=== PATIENT | male | born 1975 | race Caucasian/White ===

== ENCOUNTER 2018-01-22 12:38 | Observation (INO) ==
[2018-01-22] MEDS ORDERED: Aspirin 81 MG TAB.CHEW PO STA (13:42)
[2018-01-22 13:51] LABS: Basophils % 0.3 %; Eosinophils # 0.1 K/mcL (0.0-0.6); Eosinophils % 1.1 %; Hematocrit 35.7 % (37.5-50.1); Immature Granulocytes % 0.2 % (0-4); Lymphocytes # 2.5 K/mcL (0.6-4.6); Lymphocytes % 37.8 %; Mean Corpuscular HGB Conc 33.6 g/dL (31.6-35.5); Mean Corpuscular Hemoglobin 29.2 pg (28.0-33.3); Mean Corpuscular Volume 86.9 fL (83.0-100.0); Mean Platelet Volume 11.6 fL (9.4-12.4); Monocytes # 0.4 K/mcL (0.0-1.3); Monocytes % 6.7 %; Neutrophils # 3.6 K/mcL (1.6-8.9); Platelet Count 119 K/mcL (140-400); Red Blood Count 4.11 M/mcL (4.19-5.50); Red Cell Distribution Width 12.7 % (11.5-14.5); Segmented Neutrophils % 53.9 %
[2018-01-22 14:05] LABS: Troponin I < 0.03 ng/mL (< 0.04)
[2018-01-22 14:06] LABS: BUN/Creatinine Ratio 17 (6-26); Blood Urea Nitrogen 17 mg/dL (6-20); Calcium 9.8 mg/dL (8.6-10.3); Carbon Dioxide 33 mEq/L (23-29); Chloride 101 mEq/L (98-107); Glucose 91 mg/dL (70-105); Magnesium 1.9 mg/dL (1.6-2.6); Osmolality,Calculated 293 (280-300); Potassium 3.4 mEq/L (3.5-5.1); Sodium 141 mEq/L (136-145); eGFR For Non-African Americans > 60 (> 60)
[2018-01-22 15:14] LABS: Acetaminophen < 10 mcg/mL (10-20); Ethanol < 10 mg/dL (Less than 10); Salicylate < 2.5 mg/dL (15.0-30.0)
[2018-01-22 15:49] LABS: Thyroid Stimulating Hormone 2.127 mcIU/mL (0.340-5.600); Triiodothyronine (T3) Free 2.77 pg/mL (2.50-3.90)
[2018-01-22] MEDS ORDERED: Naloxone 0.4 MG/ML INJ IVP PRN (16:09)
[2018-01-22] MEDS ORDERED: *HR* HYDROcodone/Acet 5/325 mg TABLET PO PRN (16:09)
[2018-01-22] MEDS ORDERED: *HR* OxyCODONE Immed Rel 5 MG TABLET PO PRN (16:09)
[2018-01-22] MEDS ORDERED: Nitroglycerin 0.4 MG TAB.SUBL SL PRN (16:13)
--- NOTE | 2018-01-22 16:17 | Electrocardiograph Report ---
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
[2018-01-22] MEDS: *HR* Heparin 5,000 UNIT/ML VIAL SQ SCH (17:42)
[2018-01-22] MEDS: Nicotine 21 MG PATCH.TD24 TD SCH (17:42)
--- NOTE | 2018-01-22 19:20 | Emergency Department Note ---
Disposition Clinical Impression: Bradycardia, Medication reaction, Prolonged QT interval Chest pain Qualifiers: Chest pain type: unspecified Qualified Code(s): R07.9 - Chest pain, unspecified Disposition: Admitted As Inpatient Condition: Fair Time of Disposition: 21:50 Chest Pain HPI - General Chief Complaint: ED Chest Pain Stated Complaint: CP Time Seen by Provider: 01/22/18 12:55 Source: patient, family Limitations: no limitations Vital Signs Reviewed: Yes Nursing Notes Reviewed: Yes - History of Present Illness HPI Narrative: Patient is a 42-year-old male complaining of a one-week history of intermittent chest pain associated with diaphoresis and numbness and tingling into bilateral upper extremities and neck. Patient describes his chest discomfort as "tightness" in nature 10 out of 10 on the pain scale and no nradiating. Patient said states that both episodes of chest pain have occurred at rest and that he has no known medical history of heart condition other than hypertension which is treated with lisinopril and hydrochlorothiazide. The patient admits to a positive family history of heart disease and mother and states that he has been ordered to see a parking lot signaler by his primary care physician who noted abnormalities within his EKG. Patient is currently asymptomatic but states that he is very anxious over what may be causing his symptoms. Patient admits to daily marijuana use as well as methadone therapy. Onset (ago): week(s) Duration: intermittent, now resolved Onset: during rest Pain Location: substernal, left chest Severity: severe Severity scale (1-10): 10 Quality: tightness Pain Radiation: none Improves with: nothing Worsens with: nothing Context: other Associated symptoms: Reports: diaphoresis, other (Patient admits to numbness and tingling bilateral upper extremities and neck area.) - Related Data Home Medications Medication Instructions Recorded Confirmed Albuterol Sulfate [Ventolin Hfa] 2 puff IH Q4H PRN 01/22/18 01/22/18 Atorvastatin Calcium [Lipitor] 20 mg PO QPM 01/22/18 01/22/18 Fenofibrate Nanocrystallized 160 mg PO DAILY 01/22/18 01/22/18 [Triglide] Fluticasone Propionate [Allergy 1 spr NS DAILY 01/22/18 01/22/18 Relief] Gabapentin [Neurontin] 800 mg PO BID 01/22/18 01/22/18 Lidocaine 1 patch TP DAILY 01/22/18 01/22/18 Lisinopril [Zestril] 40 mg PO DAILY 01/22/18 01/22/18 RX: Loratadine [Claritin] 10 mg PO DAILY 01/22/18 01/22/18 hydroCHLOROthiazide 25 mg PO DAILY 01/22/18 01/22/18 [Hydrochlorothiazide] Allergies Allergy/AdvReac Type Severity Reaction Status Date / Time No Known Allergies Allergy Verified 01/22/18 12:50 All systems ED: reviewed and negative except as stated. Eyes: Denies: vision change Cardiovascular: Reports: chest pain Respiratory: Reports: dyspnea Gastrointestinal: Reports: constipation. Denies: abdominal pain, nausea, vomiting, hematochezia Genitourinary: Denies: hematuria Neurological: Reports: numbness, paresthesias. Denies: headache Psychiatric: Reports: anxiety Chest Pain PMH - Past Medical History Medical history: Reports: hypertension Psychiatric history: Reports: anxiety, bipolar - Social History Smoking Status: Current every day smoker Alcohol use: Reports: none Drug use: Reports: marijuana. Denies: methamphetamine Physical Exam - General Limitations: no limitations General appearance: alert, in no apparent distress, anxious - Head Head exam: atraumatic, normocephalic - Eye Eye exam: Present: normal appearance, PERRL, EOMI. Absent: scleral icterus, conjunctival injection - Neck Neck exam: Present: trachea midline - Chest Chest inspection: Present: normal inspection, symmetric chest wall rise. Absent: tenderness, rash, abscess - Respiratory Respiratory exam: Present: normal lung sounds bilaterally. Absent: respiratory distress, wheezes, stridor, accessory muscle use, prolonged expiratory phase - Cardiovascular Cardiovascular exam: Present: regular rate, normal rhythm, normal heart sounds, +S1, +S2. Absent: rubs, gallop, clicks, JVD, +S3, +S4 - Abdominal Exam Abdominal exam: Present: soft, tenderness, normal bowel sounds. Absent: distention, guarding, rebound, rigidity Abdominal tenderness: Present: LLQ - Neurological Exam Neurological exam: Present: alert, oriented X3 - Psychiatric Psychiatric exam: Present: normal affect, normal mood, anxious - Skin Skin exam: Present: warm, dry, intact, normal color. Absent: cyanosis, diaphoresis Course Course Narrative: Patient history, review systems, physical exam, and EKG are concerning for cardiopulmonary etiology. CBC, BMP, magnesium, troponin, EKG, chest x-ray to assess for cardiac etiology versus electrolyte derangement. 81 mg aspirin administered. Vital Signs Temperature 98.1 F 01/22/18 12:50 Pulse Rate 59 01/22/18 12:50 Respiratory Rate 20 01/22/18 12:50 Blood Pressure 120/80 01/22/18 12:50 O2 Sat by Pulse Oximetry 100 01/22/18 12:50 Temperature 98.5 F 01/22/18 17:31 Pulse Rate 49 01/22/18 17:31 Respiratory Rate 18 01/22/18 17:31 Blood Pressure 133/84 01/22/18 17:31 O2 Sat by Pulse Oximetry 97 01/22/18 18:15 Oxygen Delivery Oxygen Delivery Room Air Chest Pain - MDM Narrative Medical decision making narrative: Patient EKG changes in light of daily methadone use warrants admission for telemetry and observation. Dr. Martin from cardiology consulted and ordered potassium and magnesium. 40 mg by mouth potassium with a 20 mg rider given the patient along with 2 g of magnesium. Hospitalist consulted and accepted admission. - Lab Data Result diagrams: 01/22/18 13:28 01/22/18 13:28 Lab Results 01/22/18 01/22/18 Range/Units 13:28 13:28 WBC 6.6 (4.3-11.1) K/mcL RBC 4.11 L (4.19-5.50) M/mcL Hgb 12.0 L (12.9-16.9) g/dL Hct 35.7 L (37.5-50.1) % MCV 86.9 (83.0-100.0) fL MCH 29.2 (28.0-33.3) pg MCHC 33.6 (31.6-35.5) g/dL RDW 12.7 (11.5-14.5) % Plt Count 119 L (140-400) K/mcL MPV 11.6 (9.4-12.4) fL Immature Gran % 0.2 (0-4) % Seg Neutrophils % 53.9 % Lymphocytes % 37.8 % Monocytes % 6.7 % Eosinophils % 1.1 % Basophils % 0.3 % Neutrophils # 3.6 (1.6-8.9) K/mcL Lymphocytes # 2.5 (0.6-4.6) K/mcL Monocytes # 0.4 (0.0-1.3) K/mcL Eosinophils # 0.1 (0.0-0.6) K/mcL Basophils # 0.0 (0.0-0.2) K/mcL Sodium 141 (136-145) mEq/L Potassium 3.4 L (3.5-5.1) mEq/L Chloride 101 (98-107) mEq/L Carbon Dioxide 33 H (23-29) mEq/L BUN 17 (6-20) mg/dL Creatinine 0.99 (0.70-1.30) mg/dL Est GFR ( Amer) > 60 (> 60) Est GFR (Non-Af Amer) > 60 (> 60) BUN/Creatinine Ratio 17 (6-26) Glucose 91 (70-105) mg/dL Calculated Osmolality 293 (280-300) Calcium 9.8 (8.6-10.3) mg/dL Magnesium 1.9 (1.6-2.6) mg/dL Troponin I < 0.03 (< 0.04) ng/mL TSH 2.127 (0.340-5.600) mcIU/mL Free T4 0.64 L (0.70-2.00) ng/dl Free T3 2.77 (2.50-3.90) pg/mL Salicylates < 2.5 L (15.0-30.0) mg/dL Acetaminophen < 10 L (10-20) mcg/mL Ethyl Alcohol < 10 (Less than 10) mg/dL - EKG Data EKG attestation: Yes I reviewed and interpreted this EKG. EKG results narrative: Patient EKG shows a sinus bradycardia with possible left ventricular hypertrophy according to voltage criteria in V1 plus V5/V6. There is apparent elongation of the QT interval noted as nonspecific T wave abnormality on computer read ventricular rate 57 bpm NC interval of 130 ms, QRS duration of 101 ms, QT/QTc interval 438/432 ms, rate and axis appear normal. There are no significant ST elevations or depressions, pathologic Q waves, abnormal T-wave inversions, or any other signs of acute ischemic change. EKG performed on 04/30/2017 shows similar voltage criteria for possible LVH but QT/T wave abnormalities appear to be new onset. Repeat EKG notes prolonged QT interval with a measured QT/QTC of 595/527 ms. David gibsonicular rate on repeat is 47 bpm. Attestation Statement - Attestation Attestation: I, Kam Gomes DO, examined this patient [id number] and my medical decision-making was reviewed with Dr. Taqueria Ross, Resident Physician. I agree with the documented findings, disposition and treatment plan as described except to the extent set forth below. Please see my progress notes for details.
--- NOTE | 2018-01-22 19:29 | Emergency Department Note ---
Disposition Clinical Impression: Chest pain, Bradycardia, Medication reaction Disposition: Admitted As Inpatient Condition: Fair Referrals: Karina Woods CNP [Primary Care Provider] - Time of Disposition: 16:28 General Adult HPI - General Chief complaint: ED Chest Pain Stated complaint: CP Time Seen by Provider: 01/22/18 12:55 Source: patient, family Limitations: no limitations - History of Present Illness Pain Scale: 10 - Related Data Home Medications Medication Instructions Recorded Confirmed Albuterol Sulfate [Ventolin Hfa] 2 puff IH Q4H PRN 01/22/18 01/22/18 Atorvastatin Calcium [Lipitor] 20 mg PO QPM 01/22/18 01/22/18 Fenofibrate Nanocrystallized 160 mg PO DAILY 01/22/18 01/22/18 [Triglide] Fluticasone Propionate [Allergy 1 spr NS DAILY 01/22/18 01/22/18 Relief] Gabapentin [Neurontin] 800 mg PO BID 01/22/18 01/22/18 Lidocaine 1 patch TP DAILY 01/22/18 01/22/18 Lisinopril [Zestril] 40 mg PO DAILY 01/22/18 01/22/18 Loratadine [Claritin] 10 mg PO DAILY 01/22/18 01/22/18 hydroCHLOROthiazide 25 mg PO DAILY 01/22/18 01/22/18 [Hydrochlorothiazide] Allergies Allergy/AdvReac Type Severity Reaction Status Date / Time No Known Allergies Allergy Verified 01/22/18 12:50 Eyes: Denies: vision change Cardiovascular: Reports: chest pain Respiratory: Reports: dyspnea Gastrointestinal: Reports: constipation. Denies: abdominal pain, nausea, vomiting, hematochezia Genitourinary: Denies: hematuria Neurological: Reports: numbness, paresthesias. Denies: headache Psychiatric: Reports: anxiety Past Medical History - Past Medical History Medical history: Reports: hypertension Psychiatric history: Reports: anxiety, bipolar - Social History Smoking Status: Current every day smoker Smokeless Tobacco Status: No Alcohol use: Reports: none Drug use: Reports: marijuana. Denies: methamphetamine Physical Exam - General Limitations: no limitations General appearance: alert, in no apparent distress, anxious Course Vital Signs Temperature 98.1 F 01/22/18 12:50 Pulse Rate 59 01/22/18 12:50 Respiratory Rate 20 01/22/18 12:50 Blood Pressure 120/80 01/22/18 12:50 O2 Sat by Pulse Oximetry 100 01/22/18 12:50 Temperature 98.1 F 01/22/18 13:43 Pulse Rate 59 01/22/18 13:43 Respiratory Rate 20 01/22/18 13:43 Blood Pressure 120/80 01/22/18 13:43 O2 Sat by Pulse Oximetry 100 01/22/18 13:43 Oxygen Delivery Oxygen Delivery Room Air Medical Decision Making - Lab Data Result diagrams: 01/22/18 13:28 01/22/18 13:28 Lab Results 01/22/18 01/22/18 Range/Units 13:28 13:28 WBC 6.6 (4.3-11.1) K/mcL RBC 4.11 L (4.19-5.50) M/mcL Hgb 12.0 L (12.9-16.9) g/dL Hct 35.7 L (37.5-50.1) % MCV 86.9 (83.0-100.0) fL MCH 29.2 (28.0-33.3) pg MCHC 33.6 (31.6-35.5) g/dL RDW 12.7 (11.5-14.5) % Plt Count 119 L (140-400) K/mcL MPV 11.6 (9.4-12.4) fL Immature Gran % 0.2 (0-4) % Seg Neutrophils % 53.9 % Lymphocytes % 37.8 % Monocytes % 6.7 % Eosinophils % 1.1 % Basophils % 0.3 % Neutrophils # 3.6 (1.6-8.9) K/mcL Lymphocytes # 2.5 (0.6-4.6) K/mcL Monocytes # 0.4 (0.0-1.3) K/mcL Eosinophils # 0.1 (0.0-0.6) K/mcL Basophils # 0.0 (0.0-0.2) K/mcL Sodium 141 (136-145) mEq/L Potassium 3.4 L (3.5-5.1) mEq/L Chloride 101 (98-107) mEq/L Carbon Dioxide 33 H (23-29) mEq/L BUN 17 (6-20) mg/dL Creatinine 0.99 (0.70-1.30) mg/dL Est GFR ( Amer) > 60 (> 60) Est GFR (Non-Af Amer) > 60 (> 60) BUN/Creatinine Ratio 17 (6-26) Glucose 91 (70-105) mg/dL Calculated Osmolality 293 (280-300) Calcium 9.8 (8.6-10.3) mg/dL Magnesium 1.9 (1.6-2.6) mg/dL Troponin I < 0.03 (< 0.04) ng/mL TSH 2.127 (0.340-5.600) mcIU/mL Free T4 0.64 L (0.70-2.00) ng/dl Free T3 2.77 (2.50-3.90) pg/mL Salicylates < 2.5 L (15.0-30.0) mg/dL Acetaminophen < 10 L (10-20) mcg/mL Ethyl Alcohol < 10 (Less than 10) mg/dL Critical Care Time Critical Care Time: Yes Total Critical Care Time: 35 Attestation: Critical care performed: Time is exclusive of separately billable procedures. Time includes: direct patient care, patient reassessment, coordination of patient care, interpretation of data (laboratory data, radiology data, and respiratory data), review of patient's medical records, medical consultation and documentation of patient care. Procedures included in critical care time: Procedures excluded from critical care time: Attestation Statement - Attestation Attestation: I, Kam Gomes DO, examined this patient [id number] and my medical decision-making was reviewed with Dr. Main Sims, Resident Physician. I agree with the documented findings, disposition and treatment plan as described except to the extent set forth below. Please see my progress notes for details. 42-year-old male presents to the emergency room for evaluation of chest discomfort and pain. Patient has a history of poorly controlled hypertension and bradycardia. He has managed up at an outside facility for these issues. He also takes methadone. Patient denies any falls trauma or injury. On arrival here to the emergency room he is completely chest pain-free. He does have a history of thyroid dysfunction but is not currently on medications. Currently, he is denying chest pain shortness of breath headache or vision change. Denies any nausea vomiting or diarrhea. Denies any fevers or chills. He has not traveled outside the country or used any [id number] or street medications. Vital signs are stable otherwise except for the bradycardia. Patient was screening labs including CBC chemistry electrolytes and urinalysis urine drug screen and a chest x-ray along with EKGs here in the emergency room. My physical exam shows a thin appearing gentleman in no apparent distress. Lungs are clear heart is regular. Abdomen is soft nontender nondistended with no guarding no rigidity. No peritoneal symptoms. No signs of pulsatile mass or lesion. She ambulated around the emergency room as well as into the emergency room without any difficulty. Patient will have cardiac evaluation completed here today along with evaluation for medication-induced abnormality. His initial EKG was concerning for QT prolongation. This could be secondary to the patient using methadone. We will continue to monitor here and treat symptoms as a present. Disposition will most likely be admission secondary to cardiac evaluation and medication-induced issue. He has had profound bradycardia in the past with medication secondary to treatment of his hypertension. See detailed documentation of his physical exam, medical intervention, medical decision- making and disposition in the resident physician's note. No critical care applied to the patient's treatment course at this time. 1500 Patient had a bradycardic events down into the mid 30s. Concern is noted for QT prolongation as well as medication induced issues with the methadone. One amp of bicarbonate was given. Pacer pads were placed. Magnesium and potassium have been repleted. Consultation with the on-call industrial chemist Dr. freed was completed and he recommended upper and is of normal lab values for potassium and magnesium. This will be completed. Admission to the hospitalist will be established at this point. Patient is otherwise asymptomatic resting in the bed. Disposition to be completed. Approximately 35 minutes of critical care applied secondary to cardiac arrhythmia intervention and management.
--- NOTE | 2018-01-22 19:37 | Internal Med History&Physical ---
Date of Encounter: 01/22/18 Time of Encounter: 16:15 Internal Medicine - H&P: HPI Chief complaint: chest pain, bradycardia Admitted From: Home History of present illness: Mr. Beasley is a 42 year old male with history of hypertension, hyperlipidemia, who is on methadone tx as an outpatient, presented to the ED with left sided chest pain. Started yesterday while at rest, intermittent, pressure-like, nonradiating, no aggravating/relieving factors. Associated with bilateral arm numbness and shortness of breath. Family history of premature CAD in his father who at 53. Denies any fever/chills, cough, sputum production, hemoptysis, orthopnea, PND, or leg swelling. No GI/ symptoms. In the ED, he was afebrile and hemodynamically stable. Labs were unremarkable except for potassium of 3.4. Mg 1.9, trop -ve, TSH normal. Salicylates and acetaminophen less than 2.5 and 10 respectively. No EtOH detected. CXR without any acute cardiopulmonary process. EKG showed sinus bradycardia with QTc of 527. He was given aspirin, magnesium sulfate, and sodium bicarbonate in the ED. Patient was admitted for further management with Cardiology consult. Past Med Surg Social Fam HX - Past Medical History Attestation: Yes The following information was validated with the patient. Medical history: hyperlipidemia, hypertension Additional medical history: chronic back pain, hx lumbar fracture Psychiatric history: anxiety, bipolar - Past Surgical History Additional surgical history: L arm - Social History Smoking Status: Current every day smoker Smokeless Tobacco Status: No Alcohol use: none Drug use: marijuana - Family History Father Living Status: Age at : 53 Cause of : "heart related" Hx Family Cardiac Disorders: Yes Internal Medicine - H&P: Meds Albuterol Sulfate [Ventolin Hfa] 2 puff IH Q4H PRN 01/22/18 [History] Atorvastatin Calcium [Lipitor] 20 mg PO QPM 01/22/18 [History] Fenofibrate Nanocrystallized [Triglide] 160 mg PO DAILY 01/22/18 [History] Fluticasone Propionate [Allergy Relief] 1 spr NS DAILY 01/22/18 [History] Gabapentin [Neurontin] 800 mg PO BID 01/22/18 [History] Lidocaine 1 patch TP DAILY 01/22/18 [History] Lisinopril [Zestril] 40 mg PO DAILY 01/22/18 [History] Loratadine [Claritin] 10 mg PO DAILY 01/22/18 [History] hydroCHLOROthiazide [Hydrochlorothiazide] 25 mg PO DAILY 01/22/18 [History] Allergy/AdvReac Type Severity Reaction Status Date / Time No Known Allergies Allergy Verified 01/22/18 12:50 All Systems PM: A 10-system review of systems was performed and is negative for pertinent findings except as documented above in the HPI. - Constitutional Vitals: Temp Pulse Resp BP Pulse Ox 98.1 F 59 20 120/80 100 01/22/18 13:43 01/22/18 13:43 01/22/18 13:43 01/22/18 13:43 01/22/18 13:43 Exam: General: Alert and oriented, not in acute distress. HEENT:EOM, pupils equal, round and reactive. Cardiovascular:Normal S1 & S2, No JVD. Bradycardic but regular rhythm. No chest wall tenderness Lungs: clear to auscultation, no wheezes/rales Abdomen:Soft, non-tender, no rigidity. Extremities:No deformity or swelling Neurological:Normal cognition and motor skills. Non-focal Skin:Normal color, no rash, no lesions. Pulses:Carotid and radial pulses normal +2. Rest of the physical exam is non contributory Internal Med - H&P Results - Labs CBC & Chem 7: 01/22/18 13:28 01/22/18 13:28 Labs: Short CBC 01/22/18 Range/Units 13:28 WBC 6.6 (4.3-11.1) K/mcL Hgb 12.0 L (12.9-16.9) g/dL Hct 35.7 L (37.5-50.1) % Plt Count 119 L (140-400) K/mcL Neutrophils # 3.6 (1.6-8.9) K/mcL BMP 01/22/18 13:28 Sodium 141 Potassium 3.4 L Chloride 101 Carbon Dioxide 33 H BUN 17 Creatinine 0.99 Glucose 91 Calcium 9.8 Cardiac Enzymes 01/22/18 Range/Units 13:28 Troponin I < 0.03 (< 0.04) ng/mL - Impressions ITS Impressions Chest X-Ray 01/22/18 13:01 IMPRESSION: No acute cardiopulmonary disease. D/ / 01/22/2018 13:43:02 Marcy Dan MD / [facility] Interpreting Provider: Marcy Dan MD - Assessment and plan (1) Chest pain Current Visit: Yes Status: Acute Assessment and plan: Presented with atypical chest pain in the setting of EKG changes as below risk factors including HTN, HLD, tobacco use, and family history Previous EKG in 04/2017 did also demonstrate sinus bradycardia but did not have prolonged QT at that time troponin -ve x 1, trend telemetry overnight repeat EKG tomorrow morning monitor electrolytes Echocardiogram Cardiology consult Qualifiers: Chest pain type: unspecified Qualified Code(s): R07.9 - Chest pain, unspecified (2) Prolonged QT interval Current Visit: Yes Status: Acute Assessment and plan: Does not seem to be on any fluoroquinolones or antipsychotics, but noted to be on methadone as an outpatient which can cause prolonged QT mx as above (3) Bradycardia Current Visit: Yes Status: Chronic Assessment and plan: was noted on the previous EKG in 04/2017 as well now associated with prolonged QTc mx as above (4) HLD (hyperlipidemia) Current Visit: Yes Status: Chronic Assessment and plan: last lipid panel in 10/2017, no need to repeat this time resume home meds Qualifiers: Hyperlipidemia type: mixed hyperlipidemia Qualified Code(s): E78.2 - Mixed hyperlipidemia (5) Hypertension Current Visit: Yes Status: Chronic Assessment and plan: normotensive, resume home meds Qualifiers: Hypertension type: unspecified Qualified Code(s): I10 - Essential (primary) hypertension (6) Tobacco abuse Current Visit: Yes Status: Chronic Assessment and plan: Counseling provided. Nicotine replacement therapy (7) DVT prophylaxis Current Visit: Yes Status: Acute Assessment and plan: SQ heparin - Time Spent With Patient Total time spent is greater than 50% in coordination of care (as documented) at patient's floor/unit and/or counseling patient:
[2018-01-22] MEDS: Gabapentin 400 MG CAPSULE PO SCH (20:23)
[2018-01-23 05:14] LABS: Hematocrit 35.9 % (37.5-50.1); Hemoglobin 12.3 g/dL (12.9-16.9); Mean Corpuscular HGB Conc 34.3 g/dL (31.6-35.5); Mean Corpuscular Hemoglobin 29.6 pg (28.0-33.3); Mean Corpuscular Volume 86.3 fL (83.0-100.0); Mean Platelet Volume 11.8 fL (9.4-12.4); Platelet Count 115 K/mcL (140-400); Red Blood Count 4.16 M/mcL (4.19-5.50); Red Cell Distribution Width 12.8 % (11.5-14.5)
[2018-01-23] MEDS: *HR* Heparin 5,000 UNIT/ML VIAL SQ SCH ×2 (05:22→16:47)
[2018-01-23 05:35] LABS: BUN/Creatinine Ratio 16 (6-26); Blood Urea Nitrogen 17 mg/dL (6-20); Calcium 9.3 mg/dL (8.6-10.3); Carbon Dioxide 33 mEq/L (23-29); Chloride 103 mEq/L (98-107); Glucose 86 mg/dL (70-105); Magnesium 1.9 mg/dL (1.6-2.6); Osmolality,Calculated 295 (280-300); Potassium 3.6 mEq/L (3.5-5.1); Sodium 142 mEq/L (136-145); eGFR For Non-African Americans > 60 (> 60)
[2018-01-23] MEDS ORDERED: Loratadine 10 MG TABLET PO SCH (09:00)
--- NOTE | 2018-01-23 09:11 | Cardiology Consult Note ---
Date of Encounter: 01/23/18 Time of Encounter: 09:10 Assessment and Plan (1) Prolonged QT interval Current Visit: Yes Status: Acute Possibly related to methadone in combination with hypokalemia and relatively low Magnesium. Maintain K>4 and Mag>2.2. Will also dc loratidine, though association is unclear. Methadone half life is eight to 59 hours, may need a washout period before seeing QT improvement. If QT continues to be prolonged, will consult EP for further evaluation. EKG tomorrow. Monitor electrolytes. He will need referral to pain clinic and alternative to methadone. No clear family history of SCD unrelated to CAD. QTc minimally improved overnight. TTE nml EF and no significant valve disease. (2) Bradycardia Current Visit: Yes Status: Chronic Stable (3) Chest pain Current Visit: Yes Status: Acute No clear relationship to physical activity. [place] symptoms. Evaluate QT daily, and will consider stress testing on Thursday. Qualifiers: Chest pain type: unspecified Qualified Code(s): R07.9 - Chest pain, unspecified Discussion w patient/family: The assessment and plan as outlined above was discussed with the patient and/or family members who expressed understanding and agreement. All questions were answered. Thank you for involving us in the care of your patient. Please call with any questions. History of Present Illness Consult date: 01/23/18 History of present illness: Mr. Beasley is a 42 year old male with no previous cardiac history on methadone for chronic back pain related to injury not currently following w pain clinic. He noted chest discomfort with diaphoresis occurring at rest radiating down the arms. He has been in the [place] without cardiac symptoms. Father with premature CAD but no other known SCD. Patient notes that his physician a week or two ago had EKG done and wanted him to see a coconut boiler. Past Med Surg Social Fam HX - Past Medical History Medical history: hypertension Additional medical history: chronic back pain, hx lumbar fracture Psychiatric history: anxiety, bipolar - Past Surgical History Additional surgical history: L arm - Social History Smoking Status: Current every day smoker Smokeless Tobacco Status: No Alcohol use: none Drug use: marijuana - Family History Father Living Status: Age at : 53 Cause of : "heart related" Hx Family Cardiac Disorders: Yes Medications and Allergies Albuterol Sulfate [Ventolin Hfa] 2 puff IH Q4H PRN 01/22/18 [History] Atorvastatin Calcium [Lipitor] 20 mg PO QPM 01/22/18 [History] Fenofibrate Nanocrystallized [Triglide] 160 mg PO DAILY 01/22/18 [History] Fluticasone Propionate [Allergy Relief] 1 spr NS DAILY 01/22/18 [History] Gabapentin [Neurontin] 800 mg PO BID 01/22/18 [History] Lidocaine 1 patch TP DAILY 01/22/18 [History] Lisinopril [Zestril] 40 mg PO DAILY 01/22/18 [History] Loratadine [Claritin] 10 mg PO DAILY 01/22/18 [History] hydroCHLOROthiazide [Hydrochlorothiazide] 25 mg PO DAILY 01/22/18 [History] Allergy/AdvReac Type Severity Reaction Status Date / Time No Known Allergies Allergy Verified 01/22/18 12:50 All Systems Review: The remainder of the systems were reviewed and are negative - Constitutional Constitutional: no anorexia, no malaise - EENT Eyes: no loss of vision, no pain Nose, mouth and throat: no bleeding gums, no epistaxis - Cardiovascular Cardiovascular: chest pain at rest, no chest pain with exertion - Respiratory Respiratory: no hemoptysis, no wheezing - Gastrointestinal Gastrointestinal: no hematemesis, no hematochezia - Genitourinary Genitourinary: no hematuria, no nocturia - Musculoskeletal Musculoskeletal: no arthralgias, no myalgias - Integumentary Integumentary: no rash, no unusual bruising - Neurological Neurological: no numbness, no tingling - Psychiatric Psychiatric: no hallucinations, no panic attacks - Hematological/Lymphatic Hematologic/Lymphatic: no easy bleeding, no easy bruising Physical Examination Vital Signs, Last 4 Hours Temp Pulse Resp BP Pulse Ox 01/23/18 07:00 98.0 F 65 16 113/78 98 General: Conversant HEENT: Atraumatic Neck: No JVD Cardiac: Reg Rate and Rhythm Lungs: Normal Breath Sounds Neuro: Alert and responsive Abdomen: Soft Skin: No rashes noted on visualized skin Musculoskeletal: No Chest Wall Tenderness Extremities: No Edema Results 01/23/18 04:40 01/23/18 04:40 Lab Results 01/22/18 01/22/18 01/22/18 13:28 13:28 19:16 WBC 6.6 Hgb 12.0 L Hct 35.7 L Plt Count 119 L Sodium 141 Potassium 3.4 L Chloride 101 Carbon Dioxide 33 H BUN 17 Creatinine 0.99 Glucose 91 Calcium 9.8 Magnesium 1.9 Troponin I < 0.03 < 0.03 TSH 2.127 01/23/18 01/23/18 04:40 04:40 WBC 6.1 Hgb 12.3 L Hct 35.9 L Plt Count 115 L Sodium 142 Potassium 3.6 Chloride 103 Carbon Dioxide 33 H BUN 17 Creatinine 1.06 Glucose 86 Calcium 9.3 Magnesium 1.9 Troponin I TSH - Imaging and Cardiology Echo: report reviewed - EKG Interpretation EKG results cardiology: personally reviewed (sinus bradycardia qtc 520ms) Consult Discharge Plan - Plan Referrals: Karina Woods CNP [Primary Care Provider] -
[2018-01-23] MEDS: Lisinopril 20 MG TABLET PO SCH (09:53)
[2018-01-23] MEDS: hydroCHLOROthiazide 25 MG TABLET PO SCH (09:53)
[2018-01-23] MEDS: Gabapentin 400 MG CAPSULE PO SCH ×2 (09:53→20:26)
[2018-01-23] MEDS: Fenofibrate 54 MG TABLET PO SCH (09:54)
[2018-01-23] MEDS: Nicotine 21 MG PATCH.TD24 TD SCH (09:54)
[2018-01-23] MEDS: Acetaminophen 325 MG TABLET PO PRN ×2 (10:31→16:53)
[2018-01-23] MEDS: Fluticasone Propionate Nasal 50 MCG/SPRAY BOTTLE NS SCH (11:30)
--- NOTE | 2018-01-23 13:21 | Internal Med Progress Note ---
Hospitalist Progress Note - Encounter Date of Encounter: 01/23/18 Time of Encounter: 11:55 - Subjective Interval History: No further episodes of chest pain overnight, telemetry showed sinus bradycardia as low as 30s while he was asleep. No SOB, orthopnea, PND, LE swelling. - Exam Vitals: Temp Pulse Resp BP Pulse Ox 98.0 F 43 15 123/69 97 01/23/18 11:38 01/23/18 11:38 01/23/18 11:38 01/23/18 11:38 01/23/18 11:38 Exam: General: Alert and oriented, not in acute distress. Cardiovascular:Normal S1 & S2, No JVD. Bradycardic but regular rhythm. No chest wall tenderness Lungs: clear to auscultation, no wheezes/rales Abdomen:Soft, non-tender, no rigidity. Extremities:No deformity or swelling Neurological:Normal cognition and motor skills. Non-focal - Assessment and Plan (1) Chest pain Current Visit: Yes Status: Acute Assessment and Plan: Presented with atypical chest pain in the setting of EKG changes as below risk factors including HTN, HLD, tobacco use, and family history Previous EKG in 04/2017 did also demonstrate sinus bradycardia but did not have prolonged QT at that time ACS ruled out repeat EKG today for QTc assessment continue to replete electrolytes Follow up on Echocardiogram will consider ischemic eval depending on echocardiogram findings, follow with cardiology (2) Prolonged QT interval Current Visit: Yes Status: Acute Assessment and Plan: Does not seem to be on any fluoroquinolones or antipsychotics, but noted to be on methadone as an outpatient which can cause prolonged QT mx as above (3) Bradycardia Current Visit: Yes Status: Chronic Assessment and Plan: was noted on the previous EKG in 04/2017 as well now associated with prolonged QTc mx as above (4) HLD (hyperlipidemia) Current Visit: Yes Status: Chronic Assessment and Plan: last lipid panel in 10/2017, no need to repeat this time resume home meds (5) Hypertension Current Visit: Yes Status: Chronic Assessment and Plan: normotensive, resume home meds (6) Tobacco abuse Current Visit: Yes Status: Chronic Assessment and Plan: Counseling provided. Nicotine replacement therapy (7) DVT prophylaxis Current Visit: Yes Status: Acute Assessment and Plan: SQ heparin - Time Spent with Patient Total time spent is greater than 50% in coordination of care (as documented) at patient's floor/unit and/or counseling patient: Plan of Care Discussed with: family Internal Medicine: Result - Labs CBC & Chem 7: 01/23/18 04:40 01/23/18 04:40 Labs: Short CBC 01/22/18 01/23/18 Range/Units 13:28 04:40 WBC 6.6 6.1 (4.3-11.1) K/mcL Hgb 12.0 L 12.3 L (12.9-16.9) g/dL Hct 35.7 L 35.9 L (37.5-50.1) % Plt Count 119 L 115 L (140-400) K/mcL Neutrophils # 3.6 (1.6-8.9) K/mcL BMP 01/22/18 01/23/18 13:28 04:40 Sodium 141 142 Potassium 3.4 L 3.6 Chloride 101 103 Carbon Dioxide 33 H 33 H BUN 17 17 Creatinine 0.99 1.06 Glucose 91 86 Calcium 9.8 9.3 Cardiac Enzymes 01/22/18 01/22/18 Range/Units 13:28 19:16 Troponin I < 0.03 < 0.03 (< 0.04) ng/mL - Impressions Impressions Chest X-Ray 01/22/18 13:01 IMPRESSION: No acute cardiopulmonary disease. D/ / 01/22/2018 13:43:02 Marcy Dan MD / [email or web address] Interpreting Provider: Marcy Dan MD Echocardiogram 01/23/18 07:00 Impressions: LVEF 50-55%. Normal left ventricular diastolic function. Unable to adequately evaluate segmental wall motion due to technical quality. Recommend limited study with imaging enhancement. Normal right ventricular structure and function. No significant valvular dysfunction. Consult Discharge Plan - Plan Referrals: Karina Woods CNP [Primary Care Provider] - (1) Chest pain Qualifiers: Chest pain type: unspecified Qualified Code(s): R07.9 - Chest pain, unspeci fied (4) HLD (hyperlipidemia) Qualifiers: Hyperlipidemia type: mixed hyperlipidemia Qualified Code(s): E78.2 - Mixed hyperlipidemia (5) Hypertension Qualifiers: Hypertension type: unspecified Qualified Code(s): I10 - Essential (primary) hypertension
[2018-01-23] MEDS ORDERED: Perflutren Lipid Microsphere 1.3 ML in 0.9 % Sodium Chloride 8.7 ML IVP ONE (14:56)
[2018-01-23] MEDS: Ketorolac 30 MG/ML VIAL IVP PRN (15:24)
[2018-01-23] MEDS ORDERED: *HR* LORazepam 2 MG/ML VIAL IVP PRN (16:24)
[2018-01-23] MEDS: traMADol 50 MG TABLET PO PRN (18:29)
[2018-01-23] MEDS: diazePAM 10 MG/2 ML SYRINGE IVP PRN (20:30)
[2018-01-24] MEDS: diazePAM 10 MG/2 ML SYRINGE IVP PRN ×3 (03:53→22:44)
[2018-01-24 04:12] LABS: BUN/Creatinine Ratio 19 (6-26); Blood Urea Nitrogen 21 mg/dL (6-20); Calcium 9.3 mg/dL (8.6-10.3); Carbon Dioxide 31 mEq/L (23-29); Chloride 104 mEq/L (98-107); Glucose 109 mg/dL (70-105); Magnesium 2.3 mg/dL (1.6-2.6); Osmolality,Calculated 296 (280-300); Potassium 4.2 mEq/L (3.5-5.1); Sodium 141 mEq/L (136-145); eGFR For Non-African Americans > 60 (> 60)
[2018-01-24] MEDS: *HR* Heparin 5,000 UNIT/ML VIAL SQ SCH ×2 (06:07→18:54)
[2018-01-24] MEDS: Fenofibrate 54 MG TABLET PO SCH (10:04)
[2018-01-24] MEDS: Ketorolac 30 MG/ML VIAL IVP PRN (10:04)
[2018-01-24] MEDS: hydroCHLOROthiazide 25 MG TABLET PO SCH ×3 (10:05→11:56)
[2018-01-24] MEDS: Lisinopril 20 MG TABLET PO SCH ×3 (10:05→11:55)
[2018-01-24] MEDS: Magnesium Oxide 400 MG TABLET PO SCH (10:05)
[2018-01-24] MEDS: Gabapentin 400 MG CAPSULE PO SCH ×2 (10:05→21:56)
[2018-01-24] MEDS: Nicotine 21 MG PATCH.TD24 TD SCH (10:06)
[2018-01-24] MEDS: Fluticasone Propionate Nasal 50 MCG/SPRAY BOTTLE NS SCH (10:06)
[2018-01-24] MEDS: traMADol 50 MG TABLET PO PRN (12:32)
[2018-01-24] MEDS ORDERED: diazePAM 10 MG/2 ML SYRINGE IVP ONE (14:45)
[2018-01-24] MEDS ORDERED: traMADol 50 MG TABLET PO ONE (14:47)
--- NOTE | 2018-01-24 14:48 | Internal Med Progress Note ---
Hospitalist Progress Note - Encounter Date of Encounter: 01/24/18 Time of Encounter: 14:00 - Subjective Interval History: Continues to complain that he feels anxious and feels like he is "withdrawing" from opioid but no objective finding of diarrhea, piloerection, mydriasis, or tachycardia/HTN. States that tramadol and valium did not help much. - Exam Vitals: Temp Pulse Resp BP Pulse Ox 98.3 F 54 18 135/93 100 01/24/18 11:40 01/24/18 11:40 01/24/18 11:40 01/24/18 11:40 01/24/18 11:40 Exam: General: Alert and oriented, anxious looking Cardiovascular:Normal S1 & S2, No JVD. Bradycardic but regular rhythm. No chest wall tenderness Lungs: clear to auscultation, no wheezes/rales Abdomen:Soft, non-tender, no rigidity. Extremities:No deformity or swelling Neurological:Normal cognition and motor skills. Non-focal - Assessment and Plan (1) Chest pain Current Visit: Yes Status: Acute Assessment and Plan: Presented with atypical chest pain in the setting of EKG changes as below risk factors including HTN, HLD, tobacco use, and family history Previous EKG in 04/2017 did also demonstrate sinus bradycardia but did not have prolonged QT at that time ACS ruled out QTc improving as electrolytes were optimized and methadon is held continue to monitor electrolytes Echo was unremarkable will proceed with stress test tomorrow (2) Prolonged QT interval Current Visit: Yes Status: Acute Assessment and Plan: Does not seem to be on any fluoroquinolones or antipsychotics, but noted to be on methadone as an outpatient which can cause prolonged QT QTc 472msec today daily EKG EP consult placed per cardiology (3) Bradycardia Current Visit: Yes Status: Chronic Assessment and Plan: was noted on the previous EKG in 04/2017 as well now associated with prolonged QTc mx as above (4) Opioid withdrawal Current Visit: Yes Status: Acute Assessment and Plan: On methadone 120 mg as an outpatient concerned for methadone causing prolonged QTc refractory to the doses of tramadol, toradol, and valium that was tried yesterday unable to use clonidine due to bradycardia Upon reviewing the literature, it appears that Tramadol ER was tried in a dose as high as 600mg/d and was shown to be equally efficacious as buprenorphine will increase tramadol to 100mg Q6, also increase valium to 10mg q6H prn continue toradol outpatient pain referral for alternative agent to methadone (5) HLD (hyperlipidemia) Current Visit: Yes Status: Chronic Assessment and Plan: last lipid panel in 10/2017, no need to repeat this time resume home meds (6) Hypertension Current Visit: Yes Status: Chronic Assessment and Plan: normotensive, resume home meds (7) Tobacco abuse Current Visit: Yes Status: Chronic Assessment and Plan: Counseling provided. Nicotine replacement therapy (8) DVT prophylaxis Current Visit: Yes Status: Acute Assessment and Plan: SQ heparin - Time Spent with Patient Total time spent is greater than 50% in coordination of care (as documented) at patient's floor/unit and/or counseling patient: Plan of Care Discussed with: patient Internal Medicine: Result - Labs CBC & Chem 7: 01/23/18 04:40 01/24/18 03:30 Labs: BMP 01/24/18 03:30 Sodium 141 Potassium 4.2 Chloride 104 Carbon Dioxide 31 H BUN 21 H Creatinine 1.09 Glucose 109 H Calcium 9.3 - Impressions Impressions Echocardiogram Limited Views 01/23/18 13:18 Impressions: Technically adequate exam. LVEF 55-60%. Normal LV chamber size, wall thickness and function. No segmental dysfunction. There is no LV thrombus. Definity echo contrast was used. Consult Discharge Plan - Plan Referrals: Karina Woods CNP [Primary Care Provider] - (1) Chest pain Qualifiers: Chest pain type: unspecified Qualified Code(s): R07.9 - Chest pain, unspecified (5) HLD (hyperlipidemia) Qualifiers: Hyperlipidemia type: mixed hyperlipidemia Qualified Code(s): E78.2 - Mixed hyperlipidemia (6) Hypertension Qualifiers: Hypertension type: unspecified Qualified Code(s): I10 - Essential (primary) hypertension
[2018-01-24] MEDS ORDERED: traMADol 50 MG TABLET PO PRN (14:49)
[2018-01-24] MEDS ORDERED: diazePAM 10 MG/2 ML SYRINGE IVP SCH (19:00)
--- NOTE | 2018-01-24 22:58 | Event Note ---
Date of Encounter: 01/24/18 Time of Encounter: 22:16 Alerted by pts. nurse RICCARDO Schwartz that patient here for chest pain and methadone withdrawal scheduled to have stress test in the a.m. Patient stated the dayshift nurse told him his Ultram would be raised from 100 mg to 650 mg. Valium had been increased from 5 mg to 10 mg today. Patient wanting 650 mg of Ultram. Nurse reported patient stated his chest pain was 10 out of 10 but refused nitroglycerin. Called nurse to inform her 650 mg of Ultram would not be ordered due to extremely high dosing and to administer ordered Valium and 100 mg Ultram per order. Informed nurse to encourage patient to take nitroglycerin when necessary for chest pain. Patient to be monitored closely overnight.
[2018-01-25] MEDS: Acetaminophen 325 MG TABLET PO PRN (02:54)
[2018-01-25] MEDS: *HR* Heparin 5,000 UNIT/ML VIAL SQ SCH (05:37)
[2018-01-25] MEDS: diazePAM 10 MG/2 ML SYRINGE IVP PRN (06:11)
[2018-01-25] MEDS ORDERED: Regadenoson 0.4 MG/5 ML SYRINGE IVP ONE (06:17)
[2018-01-25 07:27] VITALS: BP 95/65
[2018-01-25 08:18] LABS: BUN/Creatinine Ratio 24 (6-26); Blood Urea Nitrogen 26 mg/dL (6-20); Calcium 9.3 mg/dL (8.6-10.3); Carbon Dioxide 29 mEq/L (23-29); Chloride 108 mEq/L (98-107); Glucose 78 mg/dL (70-105); Magnesium 2.2 mg/dL (1.6-2.6); Osmolality,Calculated 294 (280-300); Potassium 4.7 mEq/L (3.5-5.1); Sodium 140 mEq/L (136-145); eGFR For Non-African Americans > 60 (> 60)
[2018-01-25] MEDS ORDERED: Aspirin Enteric Coated 81 MG Tablet PO SCH (09:00)
[2018-01-25] MEDS: Fluticasone Propionate Nasal 50 MCG/SPRAY BOTTLE NS SCH (09:35)
[2018-01-25] MEDS: hydroCHLOROthiazide 25 MG TABLET PO SCH (09:38)
[2018-01-25] MEDS: Magnesium Oxide 400 MG TABLET PO SCH (09:39)
[2018-01-25] MEDS: Nicotine 21 MG PATCH.TD24 TD SCH (09:39)
[2018-01-25] MEDS: Gabapentin 400 MG CAPSULE PO SCH (09:39)
[2018-01-25] MEDS: Lisinopril 20 MG TABLET PO SCH (09:40)
[2018-01-25] MEDS: Fenofibrate 54 MG TABLET PO SCH (09:40)
--- NOTE | 2018-01-25 22:07 | Discharge Summary ---
- NOTES TO OUTPATIENT PROVIDER Notes to Outpatient Provider: Admitted for chest pain and prolonged QTc in the setting of methadone. Continue to request for methadone adamantly while understanding the risk of fatal arrhythmia. Left AMA. Orders not resulted at time of discharge: Pending orders 01/22/18 14:50 Drug Screen, Urine [UCHEM] Stat Date of Encounter: 01/25/18 Time of Encounter: 18:00 - Discharge Diagnosis (1) Chest pain Priority: Primary Status: Acute Qualifiers: Chest pain type: unspecified Qualified Code(s): R07.9 - Chest pain, unspecified (2) Prolonged QT interval Priority: Secondary Status: Acute (3) Bradycardia Priority: Secondary Status: Chronic (4) Opioid withdrawal Priority: Secondary Status: Acute (5) HLD (hyperlipidemia) Priority: Secondary Status: Chronic Qualifiers: Hyperlipidemia type: mixed hyperlipidemia Qualified Code(s): E78.2 - Mixed hyperlipidemia (6) Hypertension Priority: Secondary Status: Chronic Qualifiers: Hypertension type: unspecified Qualified Code(s): I10 - Essential (primary) hypertension (7) Tobacco abuse Priority: Secondary Status: Chronic (8) DVT prophylaxis Priority: Secondary Status: Acute Hospital course: Mr. Beasley is a 42 year old male with history of substance abuse on methadone tx, HTN, HLD, was admitted for chest pain and prolonged QTc in the setting of methadone use. Continue to request for methadone adamantly during his hospitalization while understanding the risk of fatal arrhythmia. Despite multiple attempts to treat his opioid withdrawal with tramadol, valium, and toradol, he was very unhappy with the treatment and left AMA. - Time Spent with Patient Total time spent providing and/or coordinating discharge services: - Discharge Medications Home Medications: Albuterol Sulfate [Ventolin Hfa] 2 puff IH Q4H PRN 01/22/18 [History] Atorvastatin Calcium [Lipitor] 20 mg PO QPM 01/22/18 [History] Fenofibrate Nanocrystallized [Triglide] 160 mg PO DAILY 01/22/18 [History] Fluticasone Propionate [Allergy Relief] 1 spr NS DAILY 01/22/18 [History] Gabapentin [Neurontin] 800 mg PO BID 01/22/18 [History] Lidocaine 1 patch TP DAILY 01/22/18 [History] Lisinopril [Zestril] 40 mg PO DAILY 01/22/18 [History] Loratadine [Claritin] 10 mg PO DAILY 01/22/18 [History] hydroCHLOROthiazide [Hydrochlorothiazide] 25 mg PO DAILY 01/22/18 [History] Allergies/Adverse Reactions: Allergy/AdvReac Type Severity Reaction Status Date / Time No Known Allergies Allergy Verified 01/22/18 12:50 Date of admission: 01/22/18 15:53 Primary care physician: Karina Woods CNP Consults: 01/22/18 15:44 Consult to Cardiology [CONS] Stat Comment: Dr. Martin Consulting Provider: Cardiology [facility] Reason for Consult: QT elongation Time Notified: 15:45 Call Completed: Yes 01/23/18 15:15 Consult to Electrophysiology (EP) [CONS] Routine Consulting Provider: Electrophysiology [place] Reason for Consult: prolonged qt Call Completed: Yes - Constitutional Vitals: Temp Pulse Resp BP Pulse Ox 97.3 F L 45 16 95/65 97 01/25/18 07:11 01/25/18 07:11 01/25/18 07:11 01/25/18 07:11 01/25/18 07:11 Exam: left before being examined on the day of AMA - Patient Status Disposition: Left Against Medical Advice Condition: Fair - Discharge Instructions Instructions: Chest Pain (DC), Chronic Hypertension (DC) Follow Up With: Karina Woods CNP [Primary Care Provider] -
--- NOTE | 2018-01-26 14:11 | Electrocardiograph Report ---
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
--- NOTE | 2018-01-26 14:16 | Electrocardiograph Report ---
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
--- NOTE | 2018-01-29 18:13 | Electrocardiograph Report ---
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
--- NOTE | 2018-01-29 18:42 | Electrocardiograph Report ---
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
--- NOTE | 2018-01-29 19:15 | Electrocardiograph Report ---
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
== END 2018-01-25 11:04 | disposition left against medical advice (07) ==
LOC: EMEROOARM 12:38 → 3BNU 12:38 → SUATTDRO 15:53 → 3BNU 17:19
PROVIDERS: ADMIT Internal Medicine Nephrology; ATTEND Internal Medicine

== ENCOUNTER 2018-07-31 10:31 | Inpatient (IN) ==
[~2018-07-31 10:31] MED LIST: *HR* Amiodarone Premix 150 MG/100 ML BAG IVPB ONE; *HR* EPINEPHrine 1 MG/10 ML SYRINGE IVP ONE; *HR* Etomidate 40 MG/20 ML VIAL IVP ONE
[2018-07-31 11:31] LABS: Basophils % 0.5 %; Eosinophils # 0.1 K/mcL (0.0-0.6); Eosinophils % 1.9 %; Hematocrit 36.9 % (37.5-50.1); Immature Granulocytes % 0.2 % (0-4); Lymphocytes % 32.7 %; Mean Corpuscular HGB Conc 32.5 g/dL (31.6-35.5); Mean Corpuscular Hemoglobin 29.1 pg (28.0-33.3); Mean Corpuscular Volume 89.3 fL (83.0-100.0); Mean Platelet Volume 11.2 fL (9.4-12.4); Monocytes # 0.5 K/mcL (0.0-1.3); Monocytes % 8.5 %; Neutrophils # 3.5 K/mcL (1.6-8.9); Platelet Count 219 K/mcL (140-400); Red Blood Count 4.13 M/mcL (4.19-5.50); Red Cell Distribution Width 14.7 % (11.5-14.5); Segmented Neutrophils % 56.2 %
[2018-07-31 11:46] LABS: BUN/Creatinine Ratio 11 (6-26); Blood Urea Nitrogen 10 mg/dL (6-20); Calcium 9.7 mg/dL (8.6-10.3); Carbon Dioxide 31 mEq/L (23-29); Chloride 101 mEq/L (98-107); Glucose 99 mg/dL (70-105); Osmolality,Calculated 285 (280-300); Potassium 2.8 mEq/L (3.5-5.1); Sodium 138 mEq/L (136-145); Troponin I < 0.03 ng/mL (< 0.04); eGFR For Non-African Americans > 60 (> 60)
[2018-07-31] MEDS ORDERED: Aspirin 81 MG TAB.CHEW PO STA (12:12)
[2018-07-31] MEDS ORDERED: Nitroglycerin 0.4 MG TAB.SUBL SL PRN (12:12)
[2018-07-31] MEDS ORDERED: *HR* LORazepam 2 MG/ML VIAL ONE (14:07)
--- NOTE | 2018-07-31 14:08 | Emergency Department Note ---
Disposition Clinical Impression: Prolonged QT interval, Cardiac arrest, Hypokalemia Disposition: Admitted As Inpatient Condition: Fair General Adult HPI - General Chief complaint: ED General Medical Stated complaint: missed methadone appt., passed out yesterday Time Seen by Provider: 07/31/18 10:52 Source: patient, family Mode of arrival: private vehicle Limitations: no limitations Nursing Notes Reviewed: Yes Vital Signs Reviewed: Yes - History of Present Illness HPI Narrative: Pt presents with chief complaint of missing his methadone appointment this morning. He had his dose yesterday, but was not able to get his ride this morning. Pt states he takes 94mg of methadone daily. He also reports a hx of "tu rning purple and not breathing" on evening of this past week. No witnesses to this event are present in the room. Pt reports a hx of two years of right sided chest pain as well as shortness of breath. Reports remote hx of undergoing heart cath but there was no stents placed. Pain Scale: 7 - Related Data Home Medications Medication Instructions Recorded Confirmed Albuterol Sulfate [Ventolin Hfa] 2 puff IH Q4H PRN 01/22/18 01/22/18 Atorvastatin Calcium [Lipitor] 20 mg PO QPM 01/22/18 01/22/18 Fenofibrate Nanocrystallized 160 mg PO DAILY 01/22/18 01/22/18 [Triglide] Fluticasone Propionate [Allergy 1 spr NS DAILY 01/22/18 01/22/18 Relief] Gabapentin [Neurontin] 800 mg PO BID 01/22/18 01/22/18 Lidocaine 1 patch TP DAILY 01/22/18 01/22/18 Lisinopril [Zestril] 40 mg PO DAILY 01/22/18 01/22/18 Loratadine [Claritin] 10 mg PO DAILY 01/22/18 01/22/18 hydroCHLOROthiazide 25 mg PO DAILY 01/22/18 01/22/18 [Hydrochlorothiazide] DULoxetine [Cymbalta] 20 mg PO DAILY 07/31/18 Allergies Allergy/AdvReac Type Severity Reaction Status Date / Time No Known Allergies Allergy Verified 01/22/18 12:50 Review of Systems: All systems ED: reviewed and negative except as stated. Constitutional: Denies: fever, chills ENT ED: Denies: ear pain, throat pain Cardiovascular: Denies: palpitations Reports: chronic chest pain Respiratory: Denies: cough, dyspnea Gastrointestinal: Denies: abdominal pain, nausea, vomiting, diarrhea, Reports: chronic constipation Genitourinary: Denies: urgency, dysuria, frequency Musculoskeletal: Denies: back pain, neck pain Integumentary: Denies: rash, abrasion Neurological: Denies: headache, weakness, numbness, paresthesias Psychiatric: Denies: anxiety, depression Endocrine: Denies: fatigue, heat or cold intolerance Hematological/Lymphatic: Denies: easy bleeding, easy bruising Allergic/Immunologic: Denies: facial swelling, urticaria Past Medical History - Past Medical History Attestation: Yes The following information was validated with the patient. Medical history: Reports: coronary artery disease, hyperlipidemia, hypertension Psychiatric history: Reports: anxiety, bipolar - Social History Smoking Status: Current every day smoker Smokeless Tobacco Status: No Alcohol use: Reports: none Drug use: Reports: marijuana Physical Exam General: A&O x 3. No acute distress. Thin, cachetic male, appears anxious. Head: atraumatic, normocephalic. ENT: No conjunctival injection, no scleral icterus. PERRLA. EOMI. Oropharynx non- erythematous. mucous membranes moist. Endentulous. Neuro: No focal deficits, no speech deficit, no facial droop, mentating well. BUE/BLE Str 5/5. Pulm: Lungs CTAB A/P. No wheezes, rales, ronchi. Cardio: RRR no m/r/g. Chest tender to palpation in right quadrant. Abd: Soft, non-distended. Normoactive bowel sounds. Non-tender to palpation. No guarding. Non rigid. Extremities: Radial pulses 2+ albin, dorsalis pedis/posterior tibialis 2+ albin. No LE edema. No cyanosis, clubbing. Skin: warm, dry, intact. No rashes. Psych: Appropriate mood and affect. Answers questions appropriately. Cooperative with exam. - General General appearance: alert Course Course Narrative: Ddx includes but is not limited to: ACS, opiate withdrawal Workup will include: CBC, BMP, troponin, EKG, CXR. - Reevaluation(s) Reevaluation #1: Pt had seizure-like activity and did not have a pulse or active respirations. CPR was initiated and BVM respirations were delivered. Pt received 2 rounds of CPR with 1 dose of cardiac epinephrine before ROSC was achieved. Pt woke and began apologizing. Mg and K will be repleted and pt will be admitted. Time: 14:11 Vital Signs Temperature 98.9 F 07/31/18 10:36 Pulse Rate 65 07/31/18 10:36 Respiratory Rate 20 07/31/18 10:36 Blood Pressure 136/95 07/31/18 10:36 O2 Sat by Pulse Oximetry 98 07/31/18 10:36 Temperature 98.9 F 07/31/18 10:36 Pulse Rate 49 07/31/18 16:18 Respiratory Rate 16 07/31/18 16:18 Blood Pressure 91/68 07/31/18 16:18 O2 Sat by Pulse Oximetry 98 07/31/18 16:18 Oxygen Delivery Oxygen Delivery Room Air Medical Decision Making - MDM Narrative Medical decision making narrative: After initial workup was complete and disposition was pending, patient had an episode of ventricular fibrillation requiring resuscitation. Patient had 2 rounds of CPR, one dose of epinephrine, and return of spontaneous circulation was achieved. Cardiology was consulted, Dr. Lisa Rowan, took a look EKG and stated that it was likely postresuscitative EKG changes and was not associated with any actual ischemia. She also related that the patient had a history of being admitted to the hospital, being diagnosed with a long QT syndrome, and told to discontinue methadone use. During that previous admission patient signed out AMA and stated that he would continue to use methadone. As the patient came to this facility this morning for missing his methadone dose, it is likely that he continued to have long QT syndrome, which may have contributed to his cardiac abnormality. Patient will be admitted to the ICU for further management and treatment. Family and patient at bedside expressed understanding and agreement with the plan. Patient then remained stable while in the department, crash cart was beside bed, and pads were attached. Patient was admitted to hospitalist Dr. Chow, who agreed to accept the pt to her service. Patient was given an opportunity to ask questions at bedside and all of their concerns were addressed. Patient verbalized understanding and agreement with plan of care. - Medical Records Medical records reviewed: Yes I reviewed the patient's medical records. - Lab Data Lab results reviewed: Yes I reviewed the patient's lab results. Result diagrams: 07/31/18 11:12 07/31/18 14:45 Lab Results 07/31/18 07/31/18 07/31/18 Range/Units 11:12 11:12 14:45 WBC 6.2 (4.3-11.1) K/mcL RBC 4.13 L (4.19-5.50) M/mcL Hgb 12.0 L (12.9-16.9) g/dL Hct 36.9 L (37.5-50.1) % MCV 89.3 (83.0-100.0) fL MCH 29.1 (28.0-33.3) pg MCHC 32.5 (31.6-35.5) g/dL RDW 14.7 H (11.5-14.5) % Plt Count 219 (140-400) K/mcL MPV 11.2 (9.4-12.4) fL Immature Gran % 0.2 (0-4) % Seg Neutrophils % 56.2 % Lymphocytes % 32.7 % Monocytes % 8.5 % Eosinophils % 1.9 % Basophils % 0.5 % Neutrophils # 3.5 (1.6-8.9) K/mcL Lymphocytes # 2.0 (0.6-4.6) K/mcL Monocytes # 0.5 (0.0-1.3) K/mcL Eosinophils # 0.1 (0.0-0.6) K/mcL Basophils # 0.0 (0.0-0.2) K/mcL Sodium 138 138 (136-145) mEq/L Potassium 2.8 L 2.6 L (3.5-5.1) mEq/L Chloride 101 98 (98-107) mEq/L Carbon Dioxide 31 H 23 (23-29) mEq/L BUN 10 11 (6-20) mg/dL Creatinine 0.88 1.08 (0.70-1.30) mg/dL Est GFR ( Amer) > 60 > 60 (> 60) Est GFR (Non-Af Amer) > 60 > 60 (> 60) BUN/Creatinine Ratio 11 10 (6-26) Glucose 99 238 H (70-105) mg/dL Calculated Osmolality 285 293 (280-300) Calcium 9.7 9.2 (8.6-10.3) mg/dL Magnesium 2.1 (1.6-2.6) mg/dL Total Bilirubin 0.6 (0.3-1.0) mg/dL AST 48 H (13-39) Units/L ALT 30 (7-52) Units/L Alkaline Phosphatase 47 (34-104) Units/L Troponin I < 0.03 0.03 (< 0.04) ng/mL Serum Total Protein 6.5 (6.4-8.9) g/dL Albumin 4.2 (3.5-5.7) g/dL Globulin 2.3 L (2.4-3.5) g/dL Albumin/Globulin Ratio 1.8 (1.1-2.2) - Radiology Data Radiology results reviewed: Yes I reviewed the patient's radiology results. Chest X-Ray 07/31/18 15:49 IMPRESSION: No acute pulmonary disease. Calcific atherosclerotic disease aorta. D/ / Quintin Aviles / Quintin Aviles Interpreting Provider: Quintin Aviles - EKG Data EKG #1 EKG attestation: Yes I reviewed and interpreted this EKG. EKG results narrative: HR 62, rhythm sinus, axis normal. WY 111, QRS 96, QTc 472. EKG #2 EKG attestation: Yes I reviewed and interpreted this EKG. EKG results narrative: 1414: HR 95, rhythm sinus, axis normal. WY 108, QRS 83, QTc 501. ST elevation in aVR, ST depression in II, III, aVF, V3, V4, V5, V6. 1425: HR 64, rhythm sinus, axis normal. WY 120, QRS 107, QTc - prolonged at 686. ST elevation in aVR, ST depression in II, III, aVF, V3, V4, V5, V6.
[2018-07-31] MEDS ORDERED: *HR* LORazepam 2 MG/ML VIAL IVP ONE (14:16)
[2018-07-31] MEDS ORDERED: Amiodarone Premix 150 MG/100 ML BAG IVPB ONE (14:18)
[2018-07-31] MEDS ORDERED: 0.9 % Sodium Chloride 1,000 ML ONE (14:27)
[2018-07-31] MEDS ORDERED: 0.9 % Sodium Chloride 1,000 ML IVC ONE (14:39)
[2018-07-31] MEDS ORDERED: Amiodarone Premix 360 MG/200 ML BAG IVC ONE (14:40)
[2018-07-31 15:39] LABS: Alanine Aminotransferase 30 Units/L (7-52); Albumin 4.2 g/dL (3.5-5.7); Albumin/Globulin Ratio 1.8 (1.1-2.2); Alkaline Phosphatase 47 Units/L (34-104); Aspartate Amino Transferase 48 Units/L (13-39); BUN/Creatinine Ratio 10 (6-26); Bilirubin,Total 0.6 mg/dL (0.3-1.0); Blood Urea Nitrogen 11 mg/dL (6-20); Calcium 9.2 mg/dL (8.6-10.3); Carbon Dioxide 23 mEq/L (23-29); Chloride 98 mEq/L (98-107); Globulin 2.3 g/dL (2.4-3.5); Glucose 238 mg/dL (70-105); Magnesium 2.1 mg/dL (1.6-2.6); Osmolality,Calculated 293 (280-300); Potassium 2.6 mEq/L (3.5-5.1); Sodium 138 mEq/L (136-145); Total Protein 6.5 g/dL (6.4-8.9); Troponin I 0.03 ng/mL (< 0.04); eGFR For Non-African Americans > 60 (> 60)
[2018-07-31] MEDS ORDERED: Naloxone 0.4 MG/ML INJ IVP PRN (15:55)
--- NOTE | 2018-07-31 16:23 | Internal Med History&Physical ---
Date of Encounter: 07/31/18 Time of Encounter: 16:20 Internal Medicine - H&P: HPI Chief complaint: missed methadone, passed out yesterday Admitted From: Home Plans for Post Hospital Care: Home History of present illness: Mr. Beasley is a 42 year old male with history of methadone dependence, prolonged QT, non-compliance to medical treatment, coronary artery disease, hyperlipidemia and hypertension [facility] he [facility] his [facility]one appointment. history is limited due to mental status so most of the history [facility]. as per Ed physician " He had his dose yesterday, but was not able to get his ride this morning." as per ED physician "passed out yesterday and had turned purple and was not breathing. No witnesses to this event are present in the room. Pt reports a hx of two years of right sided chest pain as well as shortness of breath. Reports remote hx of undergoing heart cath but there was no stents placed." [facility] basic labs were ordered but he was found by the nursing staff, stiff and not breathing. code was called and ACLS and BLS was initiated. as per ED physician he received 1 shock, 2 round of CPR and 1 EPI and his rhythm was V.fib. cardiology was consulted and it was recommended to hold off of amiodarone as it prolongs QT. they recommended to replace electrolytes, hold off of any QT prolonging medications and closely monitor him in the ICU. patient was seen and examined at bedside. has drowsy however follows simple commands, just recieved Ativan as he was agitated post cardiac arrest. he denies taking/overdosing on cymbalata. continue to ask for his methadone, he denies headache or vision changes. no other complaints and has no recollection as to what happened earlier. Past Med Surg Social Fam HX - Past Medical History Medical history: coronary artery disease, hyperlipidemia, hypertension Additional medical history: chronic back pain, hx lumbar fracture Psychiatric history: anxiety, bipolar - Past Surgical History Additional surgical history: L arm, heart cath 01/2018 - Social History Smoking Status: Current every day smoker Smokeless Tobacco Status: No Alcohol use: none Drug use: marijuana - Family History Father Living Status: Hx Family Cardiac Disorders: Yes Internal Medicine - H&P: Meds Albuterol Sulfate [Ventolin Hfa] 2 puff IH Q4H PRN 01/22/18 [History] Atorvastatin Calcium [Lipitor] 20 mg PO QPM 01/22/18 [History] Fenofibrate Nanocrystallized [Triglide] 160 mg PO DAILY 01/22/18 [History] Fluticasone Propionate [Allergy Relief] 1 spr NS DAILY 01/22/18 [History] Gabapentin [Neurontin] 800 mg PO BID 01/22/18 [History] Lidocaine 1 patch TP DAILY 01/22/18 [History] Lisinopril [Zestril] 40 mg PO DAILY 01/22/18 [History] Loratadine [Claritin] 10 mg PO DAILY 01/22/18 [History] hydroCHLOROthiazide [Hydrochlorothiazide] 25 mg PO DAILY 01/22/18 [History] DULoxetine [Cymbalta] 20 mg PO DAILY 07/31/18 [History] Allergy/AdvReac Type Severity Reaction Status Date / Time No Known Allergies Allergy Verified 01/22/18 12:50 ROS unobtainable: due to mental status All Systems PM: unable to obtain due to mental status - Constitutional Vitals: Temp Pulse Resp BP Pulse Ox 98.9 F 56 18 97/67 100 07/31/18 10:36 07/31/18 15:16 07/31/18 15:16 07/31/18 15:16 07/31/18 15:16 Exam: General: Patient is drowsy ( recieved ativan) answer to questions appropriately at time however has periods of confusion ( received ativan) no acute distress, Head: atraumatic, normocephalic, Eye: normal appearance, PERRLA but sluggis to response, no scleral icterus, no conjunctival injection ENT: mucous membranes moist, normal external ear exam Neck: normal inspection, trachea midline, full ROM, no carotid bruits Chest: normal inspection, symmetric chest rise Respiratory: Good respiratory effort. Bilateral breath sounds are clear without wheezing, crackles, or rhonchi. Cardiovascular: bradycardic s1 and s2 No clicks, rubs, gallops, or murmors. Abdomen: Bowel sounds present normoactive x-4 quadrants. Abdomen is soft, nondistended. no Epigastric tenderness. No guarding or rebound. No organomegaly noted, musculoskeletal: Spontaneously moving all extremities. no edema, no calf tenderness Skin: warm, dry, intact. multiple tattoos Neuro: Alert and oriented to place and person not time, repeatedly is requesting his methadone, CN2-12 intact , speech is comprehendible, drowsy after receiving ativan post code , moving all extremities, responds to pain, follows commands Psych: Patient's affect is normal Internal Med - H&P Results - Labs CBC & Chem 7: 07/31/18 11:12 07/31/18 14:45 Labs: Short CBC 07/31/18 Range/Units 11:12 WBC 6.2 (4.3-11.1) K/mcL Hgb 12.0 L (12.9-16.9) g/dL Hct 36.9 L (37.5-50.1) % Plt Count 219 (140-400) K/mcL Neutrophils # 3.5 (1.6-8.9) K/mcL BMP 07/31/18 07/31/18 11:12 14:45 Sodium 138 138 Potassium 2.8 L 2.6 L Chloride 101 98 Carbon Dioxide 31 H 23 BUN 10 11 Creatinine 0.88 1.08 Glucose 99 238 H Calcium 9.7 9.2 Cardiac Enzymes 07/31/18 07/31/18 Range/Units 11:12 14:45 Troponin I < 0.03 0.03 (< 0.04) ng/mL Liver Function 07/31/18 Range/Units 14:45 Total Bilirubin 0.6 (0.3-1.0) mg/dL AST 48 H (13-39) Units/L ALT 30 (7-52) Units/L Alkaline Phosphatase 47 (34-104) Units/L Albumin 4.2 (3.5-5.7) g/dL - EKG Data -: EKG Interpreted by Myself EKG shows normal: sinus rhythm (QTC 472, biphasic T waves in v2/v3, ME 111, QRS 96 ) - EKG Data Prior EKG available for review: yes When compared to previous EKG: there are significant changes (biphasic T waves n ew in v2-v3 ) - Impressions ITS Impressions Chest X-Ray 07/31/18 12:12 IMPRESSION: 1. No acute abnormality. D/ / Mainor Whitman MD / Mainor Whitman MD Interpreting Provider: Mainor Whitman MD - Assessment and Plan (1) Cardiac arrest Current Visit: Yes Status: Acute Assessment and plan: patient had Vfib cardiac arrest requiring ACLS 2 round of CPR, 1 shock adn EPI as per ED physician - ROSC was achieved not intubated as he regained conciousness and was answering questions and saturating well on NC, was not started on hypothermia protocol as his GCS was high in the ED most likely secondary to electrolyte abnormalities (hypokalemia), prolonged QT and methadone use rule out other etiologies was admitted previously for similar symptoms in december 2017 and signed out AMA Has had heart cath at [facility] previously- obtain records cardiology on board- discussed case and ekg findings with Dr. Misha mcneal- further work up as per cardiology Admit to the ICU vitals as per ICU Place pads on the chest and connected to a monitoring and evaluation advisor/defibrillator Continuous telemetry monitoring Replace potassium and continue to follow levels every 4 hours along with magnesium Post arrest EKGs pending and continue with serial EKGs to monitor QT Q4H Troponin negative post arrest CPK, ABG, chest x-ray, ct head, UA, Utox, alcohol, lactic acid, tylenol level, salicylate level STAT poison control called spoke to Danni GU and she recommended supportive management HOLD off of any QT prolonging medications aspiration, fall, seizure precautions echocardiogram NPO neurochecks Q4H strict /O continue with IVF Maintain K>4 and Mag>2.2. Low threshold for intubation TTE 2018 : Left Ventricle * LVEF 50-55%. * Normal left ventricular diastolic function. * Unable to adequately evaluate segmental wall motion due to technical quality. Recommend limited study with imaging enhancement. (2) Acute metabolic encephalopathy Current Visit: Yes Status: Acute Assessment and plan: ? secondary to metabolic/ elctrolytes abnormalities and medication ( Ativan ) rule out other etiologies ( anoxic encephalopathy post code) neurochecks Q4H ABG stat CT head stat Utox, alcohol level stat aspiration, seizure, fall precautions. elevated head of bed >45 degrees (3) Opioid withdrawal Current Visit: No Status: Acute Assessment and plan: methadone withdrawal continue to monitor an supportive care avoid QT prolonging medications or sedatives unable to use clonidine due to bradycardia (4) Prolonged QT interval Current Visit: No Status: Acute Assessment and plan: most likely from hypokalemia and methadone use Methadone half life is eight to >2 days, may need atleast 2 days prior to seeing QT improvement. management as above (5) Hypokalemia Current Visit: Yes Status: Acute Assessment and plan: potasssium level is 2.6, replaced with 40meq IV and 80 meq PO continue to follow potassium Q4H and replace accordingly maintain level >4 magnesium level WNL (6) Bradycardia Current Visit: No Status: Chronic Assessment and plan: was noted on previous EKG/Admission in 12/2017 now associated with prolonged QTc hold all QT prolonging medications discontinue methadone (7) DVT prophylaxis Current Visit: No Status: Acute Assessment and plan: heparin sc - Time Spent With Patient Total time spent is greater than 50% in coordination of care (as documented) at patient's floor/unit and/or counseling patient:
[2018-07-31 17:13] LABS: Acetaminophen < 10 mcg/mL (10-20); Ethanol < 10 mg/dL (Less than 10); Salicylate < 2.5 mg/dL (15.0-30.0)
[2018-07-31] MEDS: 0.9 % Sodium Chloride 1,000 ML IVC SCH (17:37)
[2018-07-31 17:39] LABS: Phosphorous 1.9 mg/dL (2.7-4.5)
[2018-07-31 18:40] LABS: ABG Base Excess 1 mEq/L (-2 to 3); ABG HCO3 25 mEq/L (21-27); ABG Oxygen Saturation 96 % (95-98); ABG PCO2 37 mmHg (35-45); ABG PH 7.45 pH Units (7.32-7.45); ABG PO2 80 mmHg (85-104); ABG TCO2 27 mEq/L (20-26)
[2018-07-31] MEDS: Thiamine (B-1) 100 MG TABLET PO SCH (19:41)
[2018-07-31] MEDS ORDERED: Bismuth Subsalicylate 120 ML ORAL SUSPENSION PO PRN (20:34)
[2018-07-31] MEDS ORDERED: Amiodarone Premix 360 MG/200 ML BAG IVC SCH (20:40)
[2018-07-31 21:12] LABS: Potassium 2.9 mEq/L (3.5-5.1)
[2018-07-31 21:17] LABS: Troponin I 0.35 ng/mL (< 0.04)
[2018-07-31] MEDS ORDERED: Potassium Phosphate 44 MEQ in 0.9 % Sodium Chloride 250 ML IVPB ONE (21:19)
[2018-07-31] MEDS: Nicotine 21 MG PATCH.TD24 TD SCH (21:47)
[2018-07-31] MEDS: *HR* Heparin 5,000 UNIT/ML VIAL SQ SCH (21:47)
[2018-08-01] LABS: Magnesium 2.2 mg/dL (1.6-2.6); Potassium 3.1 mEq/L (3.5-5.1)
[2018-08-01] MEDS: 0.9 % Sodium Chloride 1,000 ML IVC SCH (02:29)
[2018-08-01 02:41] LABS: Basophils % 0.3 %; Eosinophils # 0.1 K/mcL (0.0-0.6); Eosinophils % 0.9 %; Hematocrit 30.9 % (37.5-50.1); Immature Granulocytes % 0.3 % (0-4); Lymphocytes # 3.2 K/mcL (0.6-4.6); Lymphocytes % 42.3 %; Mean Corpuscular HGB Conc 32.7 g/dL (31.6-35.5); Mean Corpuscular Hemoglobin 29.3 pg (28.0-33.3); Mean Corpuscular Volume 89.6 fL (83.0-100.0); Mean Platelet Volume 11.4 fL (9.4-12.4); Monocytes # 0.5 K/mcL (0.0-1.3); Monocytes % 6.4 %; Neutrophils # 3.8 K/mcL (1.6-8.9); Platelet Count 180 K/mcL (140-400); Red Blood Count 3.45 M/mcL (4.19-5.50); Segmented Neutrophils % 49.8 %
[2018-08-01 02:45] LABS: Hemoglobin 10.1 g/dL (12.9-16.9)
[2018-08-01 02:49] LABS: Amphetamine Screen,Urine Negative ng/mL (Cutoff=1000); Barbiturate Screen,Urine Negative ng/mL (Cutoff=200); Benzodiazepines Screen,Urine Negative ng/mL (Cutoff=200); Cannabinoid Screen,Urine Positive ng/mL (Cutoff = 50); Cocaine Screen,Urine Negative ng/mL (Cutoff= 300); Opiate Screen,Urine Negative ng/mL (Cutoff=300); Phencyclidine Screen,Urine Negative ng/mL (Cutoff=25)
[2018-08-01 03:01] LABS: Alanine Aminotransferase 22 Units/L (7-52); Albumin 3.5 g/dL (3.5-5.7); Albumin/Globulin Ratio 1.9 (1.1-2.2); Alkaline Phosphatase 37 Units/L (34-104); Aspartate Amino Transferase 31 Units/L (13-39); BUN/Creatinine Ratio 11 (6-26); Bilirubin,Total 0.4 mg/dL (0.3-1.0); Blood Urea Nitrogen 9 mg/dL (6-20); Calcium 7.9 mg/dL (8.6-10.3); Carbon Dioxide 26 mEq/L (23-29); Chloride 108 mEq/L (98-107); Globulin 1.8 g/dL (2.4-3.5); Glucose 78 mg/dL (70-105); Magnesium 2.1 mg/dL (1.6-2.6); Osmolality,Calculated 288 (280-300); Potassium 3.5 mEq/L (3.5-5.1); Sodium 140 mEq/L (136-145); Total Protein 5.3 g/dL (6.4-8.9); eGFR For Non-African Americans > 60 (> 60)
[2018-08-01] MEDS: *HR* Heparin 5,000 UNIT/ML VIAL SQ SCH ×3 (05:06→21:45)
--- NOTE | 2018-08-01 07:32 | Internal Med Progress Note ---
Hospitalist Progress Note - Encounter Date of Encounter: 08/01/18 Time of Encounter: 07:28 - Subjective Interval History: Patient seen and examined this morning at bedside. No acute overnight events. Currently denies any complaints. Denies any dizziness abdominal pain. She worried about getting withdrawal from methadone. Denies any chest pain or di fficulty breathing. - Exam Vitals: Temp Pulse Resp BP Pulse Ox 98.0 F 86 18 119/85 99 08/01/18 04:00 08/01/18 07:00 08/01/18 07:00 08/01/18 07:00 08/01/18 07:00 Exam: General: In no acute distress. Respiratory exam: CTAB. no accessory muscle use, rales, rhonchi, wheezes Cardiovascular exam: RRR, +S1, +S2. no murmur, gallop, rubs. GI/Abdominal exam: Non-tender, Non-distended, normal bowel sounds, soft, no peritoneal signs. Extremities exam: no pedal edema, pulses palpable in b/l lower extremities. no calf tenderness Neurological exam: CN II-XII intact, AO X3, no focal deficits. Skin exam: No skin rash - Assessment and Plan (1) Bradycardia Current Visit: No Status: Chronic (2) DVT prophylaxis Current Visit: No Status: Acute (3) Prolonged QT interval Current Visit: Yes Status: Acute (4) Opioid withdrawal Current Visit: No Status: Acute (5) Cardiac arrest Current Visit: Yes Status: Acute (6) Hypokalemia Current Visit: Yes Status: Acute (7) Acute metabolic encephalopathy Current Visit: Yes Status: Acute - Summary of Assessment and Plan Summary of Assessment and Plan: Assessment Vfib Cardiac arrest Prolong QT Bradycardia Acute metabolic encephalopathy hypokalemia hypophosphotamia Elevated CPK Marijuan use Methadone dependence Plan AOx2. EKG without QT prolongation this morning, ST depression in inferior leads. Bradycardia resolved Obtain BMP, Mg ,phos, TSH. Replete electrolytes as needed f/u ECHO Patient ate himself. Will start cardiac diet. Transfer to step down Obtain record from [facility] regarding cath results Confirm methadone dose. Will not resume methadone and avoid clonidine use. Hold antihypertensive for now-HCTZ, lisinopril Resume levothyroxin. Awaiting cardiology evaluation - Time Spent with Patient Total time spent is greater than 50% in coordination of care (as documented) at patient's floor/unit and/or counseling patient: Internal Medicine: Result - Labs CBC & Chem 7: 08/01/18 02:05 08/01/18 02:05 Labs: Short CBC 07/31/18 08/01/18 Range/Units 11:12 02:05 WBC 6.2 7.5 (4.3-11.1) K/mcL Hgb 12.0 L 10.1 L D (12.9-16.9) g/dL Hct 36.9 L 30.9 L (37.5-50.1) % Plt Count 219 180 (140-400) K/mcL Neutrophils # 3.5 3.8 (1.6-8.9) K/mcL BMP 07/31/18 07/31/18 07/31/18 11:12 14:45 20:40 Sodium 138 138 Potassium 2.8 L 2.6 L 2.9 L Chloride 101 98 Carbon Dioxide 31 H 23 BUN 10 11 Creatinine 0.88 1.08 Glucose 99 238 H Calcium 9.7 9.2 07/31/18 08/01/18 23:20 02:05 Sodium 140 Potassium 3.1 L 3.5 Chloride 108 H Carbon Dioxide 26 BUN 9 Creatinine 0.79 Glucose 78 Calcium 7.9 L Cardiac Enzymes 07/31/18 07/31/18 07/31/18 Range/Units 11:12 14:45 20:40 Troponin I < 0.03 0.03 0.35 H* (< 0.04) ng/mL 08/01/18 Range/Units 02:05 Troponin I 0.29 H* (< 0.04) ng/mL Liver Function 07/31/18 08/01/18 Range/Units 14:45 02:05 Total Bilirubin 0.6 0.4 (0.3-1.0) mg/dL AST 48 H 31 (13-39) Units/L ALT 30 22 (7-52) Units/L Alkaline Phosphatase 47 37 (34-104) Units/L Albumin 4.2 3.5 (3.5-5.7) g/dL - ABG Interpretation ABG results: ABG ABG pH 7.45 pH Units (7.32-7.45) 07/31/18 18:36 ABG pCO2 37 mmHg (35-45) 07/31/18 18:36 ABG pO2 80 mmHg (85-104) L 07/31/18 18:36 ABG O2 Saturation 96 % (95-98) 07/31/18 18:36 - Impressions Impressions Chest X-Ray 07/31/18 12:12 IMPRESSION: 1. No acute abnormality. D/ / Mainor Whitman MD / Mainor Whitman MD Interpreting Provider: Mainor Whitman MD Head CT 07/31/18 15:47 IMPRESSION: No acute intracranial abnormality. D/ / Karina Yost MD / Karina Yost MD Interpreting Provider: Karina Yost MD Chest X-Ray 07/31/18 15:49 IMPRESSION: No acute pulmonary disease. Calcific atherosclerotic disease aorta. D/ / Quintin Aviles / Quintin Aviles Interpreting Provider: Quintin Aviles Consult Discharge Plan - Plan Referrals: NONE,PCP [Primary Care Provider] -
[2018-08-01] MEDS: Nicotine 21 MG PATCH.TD24 TD SCH (07:40)
[2018-08-01] MEDS: Folic Acid 1 MG TABLET PO SCH (07:40)
[2018-08-01] MEDS: Thiamine (B-1) 100 MG TABLET PO SCH (07:40)
[2018-08-01 08:49] LABS: Potassium 3.4 mEq/L (3.5-5.1)
[2018-08-01 09:01] LABS: BUN/Creatinine Ratio 12 (6-26); Blood Urea Nitrogen 10 mg/dL (6-20); Calcium 8.5 mg/dL (8.6-10.3); Carbon Dioxide 26 mEq/L (23-29); Chloride 109 mEq/L (98-107); Glucose 88 mg/dL (70-105); Osmolality,Calculated 292 (280-300); Phosphorous 2.8 mg/dL (2.7-4.5); Potassium 3.5 mEq/L (3.5-5.1); Sodium 142 mEq/L (136-145); Troponin I 0.13 ng/mL (< 0.04); eGFR For Non-African Americans > 60 (> 60)
[2018-08-01] MEDS: Levothyroxine 25 MCG TABLET PO SCH (09:08)
[2018-08-01] MEDS: Fenofibrate 54 MG TABLET PO SCH (09:09)
--- NOTE | 2018-08-01 09:17 | Cardiology Consult Note ---
Date of Encounter: 08/01/18 Time of Encounter: 08:50 Assessment and Plan (1) Cardiac arrest Current Visit: Yes Status: Acute Suspect ventricular fibrillation due to profound hypokalemia with K 2.6. QTc may or may not be prolonged- may be T wave merging with U wave. Will continue to replete potassium to >4.5, Mg >2.0 and repeat EKG. Would avoid QT prolonging drugs. Will c/s nephrology for assistance with hypokalemia- no obvious cause. Per family, pt. has had issues with hypokalemia in past. Will review echo. In past EF normal. (2) Elevated troponin Current Visit: Yes Status: Acute Suspect related to cardiac arrest, CPR. Due to cardiac arrest, elevated troponin, however, will plan on cardiac catheterization tomorrow to exclude significant CAD. Had nonobstructive disease by cath at [facility] in January 2018. (3) Hypokalemia Current Visit: Yes Status: Acute Profound hypokalemia on presentation. Per family, pt has had problems with hypokalemia in past. No obvious etiology. Will c/s nephrology for assistance/evaluation. (4) Prolonged QT interval Current Visit: Yes Status: Acute Suspect may be QU wave in setting of profound hypokalemia. Will correct K > 4.5 and repeat EKG. Will also send for EKGs from [facility]. No family of SCD. Discussion w patient/family: The assessment and plan as outlined above was discussed with the patient and/or family members who expressed understanding and agreement. All questions were answered. Thank you for involving us in the care of your patient. Please call with any questions. History of Present Illness Consult date: 08/01/18 Requesting physician: Sushila Calvillo Consult reason: cardiac arrest Chief complaint: syncope History of present illness: Mr. Beasley is a 42 year old male with history of chronic methadone use, HTN, nonobstructive CAD, hyperlipidemia presented to [facility] ED yesterday after missing his methadone appointment. While in ED, pt went into cardiac arrest with reported VF on monitor (no rhythm strips available for review). ACLS intiated. Pt had ROSC after 2 rounds of CPR and dose of epinephrine. Does not appear to have been defibrillated per ED notes. Prior to arrest as well as after arrest EKG notable for marked ST depression in II, III, aVF as well as V3-V6. Also appears to have marked QTc prolongation at 686ms. Also notable potassium was 2.8 on arrival, repeat 2.6. Pt admitted to ICU, potassium repleted and given magnesium. On exam today, pt without complaints other than some chest soreness from CPR. Also asking for methadone. Pt states that for past few weeks has had "fluttering" in chest associated with diaphoresis. A few days ago, while riding in car home from methadone appointment, pt "blacked out" in car. Per family, he was not breathing and "turned purple." EMS contacted. On their arrival, pt awake and alert and declined transport to hospital. Pt has also noted generalized weakness as well as severe muscle cramping of LE. Denies n/v/diarrhea. Denies diuretic use. Of note, pt has been to multiple hospitals over past year including [facility], [place], [facility], as well as here. Was at [facility] in January 2018 c/o CP. Had stress Had cardiac catheterization performed- R dominant system. L main normal. 15% prox LAD, Cx normal, 25% prox RCA. LVEDP elevated at 20mmHg. Echocardiogram at [place] Dec 2017- EF 50-55%, normal LV and RV function, no sig valvular heart disease. Pt hospitalized here with CP at [facility] in Dec 2017. At that time noted to have hypokalemia with K 3.4. QTc interval noted to be prolonged as well. Attributed to hypokalemia as well as methadone use. Pt left AMA. No family hx of SCD. Father from premature CAD age 53. Past Med Surg Social Fam HX - Past Medical History Medical history: coronary artery disease, hyperlipidemia, hypertension Additional medical history: chronic back pain, hx lumbar fracture Psychiatric history: anxiety, bipolar - Past Surgical History Additional surgical history: L arm, heart cath 01/2018 - Social History Smoking Status: Current every day smoker Smokeless Tobacco Status: No Alcohol use: none Drug use: opiates, marijuana - Family History Father Living Status: Age at : 53 Hx Family Cardiac Disorders: Yes (CAD) Medications and Allergies Albuterol Sulfate [Ventolin Hfa] 2 puff IH Q4H PRN 01/22/18 [History] Fenofibrate Nanocrystallized [Triglide] 160 mg PO DAILY 01/22/18 [History] Fluticasone Propionate [Allergy Relief] 1 spr NS DAILY PRN 01/22/18 [History] Lisinopril [Zestril] 40 mg PO DAILY 01/22/18 [History] Loratadine [Claritin] 10 mg PO DAILY 01/22/18 [History] hydroCHLOROthiazide [Hydrochlorothiazide] 25 mg PO DAILY 01/22/18 [History] DULoxetine [Cymbalta] 20 mg PO DAILY 07/31/18 [History] Fluticasone Propionate [Flovent Hfa] 1 puff IH DAILY 07/31/18 [History] Levothyroxine [Synthroid] 25 mcg PO DAILY 07/31/18 [History] Methadone PO DAILY 07/31/18 [History] Allergy/AdvReac Type Severity Reaction Status Date / Time No Known Allergies Allergy Verified 01/22/18 12:50 All Systems Review: The remainder of the systems were reviewed and are negative - Cardiovascular Cardiovascular: as per HPI Physical Examination Vital Signs, Last 4 Hours Temp Pulse Resp BP Pulse Ox 08/01/18 08:00 82 18 119/81 98 08/01/18 07:30 97.9 F 08/01/18 07:20 50 08/01/18 07:00 86 18 119/85 99 08/01/18 06:00 53 20 92/72 97 08/01/18 05:00 51 18 97/66 96 General: Conversant, No Apparent Distress HEENT: Atraumatic, Normocephaly, Mucus Membranes Moist Neck: No JVD, Normal carotid pulses Cardiac: Reg Rate and Rhythm, Normal S1 and S2, No Murmur Lungs: Normal Breath Sounds, No Wheeze, Rales, Rhonchi Neuro: Alert and responsive, No focal deficits noted Abdomen: Soft, Non-Tender Skin: No rashes noted on visualized skin Musculoskeletal: No Chest Wall Tenderness Extremities: No Clubbing, No Cyanosis, No Edema, Normal Pulses Results 08/01/18 02:05 08/01/18 08:16 Lab Results 07/31/18 07/31/18 07/31/18 11:12 11:12 14:45 WBC 6.2 Hgb 12.0 L Hct 36.9 L Plt Count 219 Sodium 138 138 Potassium 2.8 L 2.6 L Chloride 101 98 Carbon Dioxide 31 H 23 BUN 10 11 Creatinine 0.88 1.08 Glucose 99 238 H Calcium 9.7 9.2 Magnesium 2.1 Total Bilirubin 0.6 AST 48 H ALT 30 Alkaline Phosphatase 47 Troponin I < 0.03 0.03 07/31/18 07/31/18 08/01/18 20:40 23:20 02:05 WBC 7.5 Hgb 10.1 L D Hct 30.9 L Plt Count 180 Sodium Potassium 2.9 L 3.1 L Chloride Carbon Dioxide BUN Creatinine Glucose Calcium Magnesium 2.2 Total Bilirubin AST ALT Alkaline Phosphatase Troponin I 0.35 H* 08/01/18 08/01/18 08/01/18 02:05 02:05 08:16 WBC Hgb Hct Plt Count Sodium 140 Potassium 3.5 3.4 L Chloride 108 H Carbon Dioxide 26 BUN 9 Creatinine 0.79 Glucose 78 Calcium 7.9 L Magnesium 2.1 2.0 Total Bilirubin 0.4 AST 31 ALT 22 Alkaline Phosphatase 37 Troponin I 0.29 H* Consult Discharge Plan - Plan Referrals: NONE,PCP [Primary Care Provider] -
[2018-08-01] MEDS: traMADol 50 MG TABLET PO PRN ×2 (12:28→19:53)
[2018-08-01 13:30] LABS: Potassium 3.3 mEq/L (3.5-5.1)
[2018-08-01] MEDS: *HR* LORazepam 2 MG/ML VIAL IVP PRN ×2 (14:49→21:16)
[2018-08-01 15:17] LABS: Potassium 3.4 mEq/L (3.5-5.1)
[2018-08-01] MEDS: Acetaminophen 325 MG TABLET PO PRN (21:44)
[2018-08-02] MEDS: traMADol 50 MG TABLET PO PRN ×3 (05:03→20:42)
[2018-08-02] MEDS: Levothyroxine 25 MCG TABLET PO SCH (05:36)
[2018-08-02 08:02] LABS: BUN/Creatinine Ratio 12 (6-26); Blood Urea Nitrogen 10 mg/dL (6-20); Calcium 8.6 mg/dL (8.6-10.3); Carbon Dioxide 27 mEq/L (23-29); Chloride 113 mEq/L (98-107); Glucose 82 mg/dL (70-105); Osmolality,Calculated 296 (280-300); Potassium 4.5 mEq/L (3.5-5.1); Sodium 144 mEq/L (136-145); eGFR For Non-African Americans > 60 (> 60)
[2018-08-02] MEDS: Folic Acid 1 MG TABLET PO SCH (09:06)
[2018-08-02] MEDS: Thiamine (B-1) 100 MG TABLET PO SCH (09:06)
[2018-08-02] MEDS: Fenofibrate 54 MG TABLET PO SCH (09:06)
[2018-08-02] MEDS: Nicotine 21 MG PATCH.TD24 TD SCH (09:06)
--- NOTE | 2018-08-02 09:49 | Internal Med Progress Note ---
Hospitalist Progress Note - Encounter Date of Encounter: 08/02/18 Time of Encounter: 07:49 - Subjective Interval History: Patient seen and examined this morning at bedside. Acute overnight events. Feeling somewhat sweaty but otherwise denies new complaints. Denies any nausea vomiting diarrhea. Currently nothing by mouth. Denies any chest pain or sh ortness of breath. - Exam Vitals: Temp Pulse Resp BP Pulse Ox 97.9 F 64 15 108/83 99 08/02/18 08:12 08/02/18 04:00 08/02/18 00:00 08/02/18 04:00 08/02/18 00:00 Exam: General: In no acute distress. Respiratory exam: CTAB. no accessory muscle use, rales, rhonchi, wheezes Cardiovascular exam: RRR, +S1, +S2. no murmur, gallop, rubs. GI/Abdominal exam: Non-tender, Non-distended, normal bowel sounds, soft, no peritoneal signs. Extremities exam: no pedal edema, no calf tenderness Neurological exam: CN II-XII intact, AO X3, no focal deficits. Skin exam: No skin rash - Assessment and Plan (1) Bradycardia Current Visit: No Status: Chronic (2) DVT prophylaxis Current Visit: No Status: Acute (3) Prolonged QT interval Current Visit: Yes Status: Acute (4) Opioid withdrawal Current Visit: No Status: Acute (5) Cardiac arrest Current Visit: Yes Status: Acute (6) Hypokalemia Current Visit: Yes Status: Acute (7) Acute metabolic encephalopathy Current Visit: Yes Status: Acute - Summary of Assessment and Plan Summary of Assessment and Plan: Assessment Vfib Cardiac arrest Prolong QT Bradycardia Acute metabolic encephalopathy hypokalemia hypophosphotamia Elevated CPK Marijuana use Anemia Methadone dependence Plan - Appreciate cardiology input. Nephrology consulted for hypokalemia. ?family history. May be related HCTZ use which has been held. Suspect hypokalemia caused Vfib arrest. EKG noted to have ST depressions and Qt prolongation. Plan for [facility] today. - Bradycardia resolved but occasionally HR in 50s. Electrolyte abnormality resolved. TSH normal. - ECHO with EF 55, Normal Wall motion. No other abnormality. Nonobsructive cath at [facility] in Jan 2018. - hold methadone for now. Will discuss with cardiology about resuming. - Hold antihypertensive for now as. Will likely stop HCTZ indefinitely. Hold lisinopril for now. - c/w levothyroxin. - Anemia appears to be chronic. No active blood loss. Will need further workup as outpatient. - Time Spent with Patient Total time spent is greater than 50% in coordination of care (as documented) at patient's floor/unit and/or counseling patient: Internal Medicine: Result - Labs CBC & Chem 7: 08/01/18 02:05 08/02/18 07:04 Labs: BMP 08/01/18 08/01/18 08/02/18 11:14 14:49 07:04 Sodium 144 Potassium 3.3 L 3.4 L 4.5 D Chloride 113 H Carbon Dioxide 27 BUN 10 Creatinine 0.81 Glucose 82 Calcium 8.6 - ABG Interpretation ABG results: ABG ABG pH 7.45 pH Units (7.32-7.45) 07/31/18 18:36 ABG pCO2 37 mmHg (35-45) 07/31/18 18:36 ABG pO2 80 mmHg (85-104) L 07/31/18 18:36 ABG O2 Saturation 96 % (95-98) 07/31/18 18:36 - Impressions Impressions Echocardiogram 08/01/18 15:48 Impressions: LVEF 55%. Normal LV chamber size, wall thickness and function. Normal right ventricular structure and function. Mild tricuspid regurgitation. No pulmonary hypertension. Left Ventricular Wall Motion: Rest Echo Findings All wall segments showed normal motion. Findings: Study Quality * Technically adequate exam. ECG Findings * Normal sinus rhythm. Left Ventricle * LVEF 55%. * Normal LV chamber size, wall thickness and systolic function. * Normal left ventricular diastolic function. Right Ventricle * Normal right ventricular structure and function. Left Atrium * Normal left atrial size. Right Atrium * Normal right atrial size. Interatrial Septum * Interatrial septum not well evaluated. * No evidence of PFO by color Doppler. Aortic Valve * Trileaflet aortic valve with normal function. * No aortic stenosis. * No aortic regurgitation. Mitral Valve * Normal mitral valve structure. * No mitral regurgitation. * Trace mitral regurgitation. Tricuspid Valve * Normal tricuspid valve structure. * No tricuspid stenosis. * Mild tricuspid regurgitation. * Estimated RVSP is 23 mmHg. * Estimated RA pressure is 8 mmHg. * No pulmonary hypertension. Pulmonic Valve * Pulmonic valve is not well visualized. * No pulmonic stenosis. * Trace pulmonic regurgitation. Aorta * Normally sized aortic root. Pericardium * The pericardium appears normal. IVC * The IVC is dilated. * > 50% respiratory change Consult Discharge Plan - Plan Referrals: NONE,PCP [Primary Care Provider] -
--- NOTE | 2018-08-02 09:52 | Electrocardiograph Report ---
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
--- NOTE | 2018-08-02 09:57 | Electrocardiograph Report ---
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
[2018-08-02 10:20] LABS: Basophils % 0.4 %; Eosinophils % 0.6 %; Hematocrit 31.4 % (37.5-50.1); Hemoglobin 10.2 g/dL (12.9-16.9); Immature Granulocytes % 0.4 % (0-4); Lymphocytes # 1.5 K/mcL (0.6-4.6); Mean Corpuscular HGB Conc 32.5 g/dL (31.6-35.5); Mean Corpuscular Hemoglobin 29.4 pg (28.0-33.3); Mean Corpuscular Volume 90.5 fL (83.0-100.0); Mean Platelet Volume 11.3 fL (9.4-12.4); Monocytes # 0.4 K/mcL (0.0-1.3); Monocytes % 7.1 %; Platelet Count 200 K/mcL (140-400); Red Blood Count 3.47 M/mcL (4.19-5.50); Red Cell Distribution Width 15.6 % (11.5-14.5); Segmented Neutrophils % 60.5 %
--- NOTE | 2018-08-02 10:53 | Electrocardiograph Report ---
[place] [address] Test Date: 2018-07-31 Pat Name: Lionel Beasley Department: 104 Room: [facility] Gender: M Route Agent: Heath : 1975 Requested By: Fernie Campbell Order Number: [id number] Reading MD: Mary Beth Kate Measurements Intervals [place] Rate: 62 P: 72 [place]: 111 QRS: 82 QRSD: 96 T: 268 QT: 466 QTc: 472 Interpretive Statements SINUS RHYTHM WITH SHORT [place] INTERVAL LEFT VENTRICULAR HYPERTROPHY AND ST-T CHANGE Electronically Signed On 08-02-2018 10:52:19 EDT by Mary Beth Kate
[2018-08-02] MEDS ORDERED: ISOVUE-370 200 ML INFUS..BTL ONE (12:38)
[2018-08-02] MEDS ORDERED: 0.9 % Sodium Chloride 2,000 ML ONE (12:38)
[2018-08-02] MEDS ORDERED: Nitroglycerin 1,000 MCG/10 ML VIAL IV ONE (12:38)
[2018-08-02] MEDS ORDERED: *HR* Heparin 10,000 UNIT/10 ML VIAL ONE (12:38)
[2018-08-02] MEDS ORDERED: Heparin 1,000 UNITS/500 mL 500 ML ONE (12:38)
[2018-08-02] MEDS ORDERED: *HR* Midazolam HCl 2 MG/2 ML VIAL ONE (13:03)
[2018-08-02] MEDS ORDERED: *HR* FentaNYL (PF) 100 MCG/2 ML VIAL ONE (13:03)
--- NOTE | 2018-08-02 13:15 | Pre-Sedation Evaluation ---
Pre-sedation evaluation - Pre-sedation checklist Date of procedure: 08/02/18 Procedure: LHC Recent Vitals: Last Vital Signs Temp 98.7 F 08/02/18 12:25 Pulse 68 08/02/18 12:25 Resp 20 08/02/18 12:25 BP 145/96 08/02/18 12:25 Pulse Ox 95 08/02/18 12:25 ASA Classification *see protocol: CLASS II-Mild systemic disease Cardiac Registry (Cardio Only) - Functional Capacity Functional Capacity: >=4 METS without symptoms - Clincal Frailty Scale Clinical Frailty Scale: Managing Well
[2018-08-02] MEDS ORDERED: Nitroglycerin Spray 4.9 GM BOTTLE ONE (13:32)
--- NOTE | 2018-08-02 13:53 | Invasive Diagnostic Lab Proc ---
Name: Lionel Beasley Date of Study: 08/02/2018 Date: 1975 Ht: 70.9in Medical Record#: [id number] Age: 42 Wt: 145.51lb Gender: Male BSA: 1.84 Order #: [id number] BMI: 20.37 Physicians Procedure Physician: Reilly Liu MD Referring MD: Referring MD: Staff Name Position Time In Libby Reid RN Monitor 01:00 PM Juan Mccracken RN Repair Technician 01:00 PM Rosie Knutson RT Scrub 01:00 PM Indications Indication Non-Stemi Procedures Performed Procedure L HRT ARTERY/VENTRICLE ANGIO Pre-Procedure Checklist Informed consent is complete signed and on chart. H&P is on chart. ID band is on and ID verified with patient. Patient NPO for procedure The procedure was described for the patient and questions were answered. ECG is on chart. Plan of Care Patient will tolerate the procedure without complications. Adequate level of comfort will be maintained. Hemodynamics will remain stable Patient will recover from procedure without complications. Respiratory function will be maintained. Cardiac rhythm will remain stable. Patient temperature will be maintained. Patient and/or family have verbalized understanding of the procedure. Patient Education Chief Complaint/Reason for Test: Cardiac Cath Developmental Category: Adult (18-64 years) Developmentally Appropriate for Age: Yes Learning Barriers: None Education Needs: Procedure Education Method: Verbal Information Taught: Cardiac Cath Educational Evaluation: Able to repeat information Intravenous Access Time IV Size Location DC'd Fluid/Drip Rate Units RN 20g 1 1/" Patent On Arrival Rt Arm 0.9NaCl 25 ml/hr Allergies No Known Allergies Vital Signs Time BP (mmHg) HR (bpm) O2 Sat. RR (bpm) LOC 01:13 PM / % 5 = Fully awake and oriented or at pre-proc level 01:13 PM / % 4 = Oriented but drowsy 01:05 PM 146 / 113 79 100 % 01:09 PM 139 / 72 69 100 % 12 01:14 PM 140 / 91 63 100 % 01:19 PM 136 / 87 65 100 % 19 01:24 PM 144 / 96 71 100 % 14 01:29 PM 143 / 93 73 100 % 16 01:34 PM 141 / 92 65 100 % 16 Procedural Medications Time Medication Dose Units Method Given By 01:14 PM Oxygen 2 L/min nasal cannula Juan Mccracken RN 01:15 PM Versed 1 mg Intravenous Juan Mccracken RN 01:15 PM Fentanyl 50 mcg Intravenous Juan Mccracken RN 01:19 PM Lidocaine 2% 10 ml Subcutaneous Reilly Liu MD 01:26 PM Lidocaine 2% 10 ml Subcutaneous Reilly Liu MD 01:33 PM Nitro Sweetwater 0.4 mg Sublingual Juan Mccracken RN ASA Classification: CLASS II- Mild systemic disease (i.e. well-controlled diabetes, hypertension, asthma, cigarette smoking) Grupo Score Preprocedure Postprocedure Activity 2- Moves 4 extremities sustained head lift Activity 2- Moves 4 extremities sustained head lift Circulation 2- SBP +/= 20 points of pre-anesthetic level Circulation 2- SBP +/= 20 points of pre-anesthetic level Consciousness 2- Awake and alert oriented x 3 Consciousness 2- Awake and alert oriented x 3 O2 Saturation 2- Able to maintain O2 satruation of 92% on room air O2 Saturation 2- Able to maintain O2 satruation of 92% on room air Respiratory 2- Able to deep breathe and cough well Respiratory 2- Able to deep breathe and cough well Total Score 10 Total Score 10 Contrast Agent: Isovue Diagnostic Contrast: 64 ml Total Contrast: 64 ml Fluoro Dose: 16 mGy Procedure Log Time Note Enter By 01:00 PM 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 kkner 01:00 PM Meka completed :00 PM Sign in performed according to hospital policy. Informed consent was obtained. kkall 01:00 PM Procedure start 13:00 [email or web address] 01:00 PM Hair removed from procedure site in procedure lab using clippers. Bilateral groin prepped with Chloraprep by Juan Mccracken RN, then patient was draped. Skin intact. [email or web address] 01:04 PM CathStat 01:04 PM Vitals capture started with the following parameters, Patient=Adult, Interval=5 min, Initial Jpqbaeyl=061 mmHg, Deflation Rate=5 mmHg, Cuff placed on Left Arm 01:05 PM HR=79 bpm, XWFT=106/113 mmhg, ZmN3=406.0 %, Comment=nsr 01:06 PM ASA Class CLASS II- Mild systemic disease (i.e. well-controlled diabetes, hypertension, asthma, cigarette smoking) [email or web address] 01:09 PM HR=69 bpm, PQLT=506/72 mmhg, AtH7=892.0 %, Resp=12 B/min, EtCO2=35 mmHg 01:13 PM Time: 13:13 Patient comfortable and pain free: Yes [email or web address] :13 PM Time: 13:13LOC: 5 = Fully awake and oriented or at pre-proc [facility] PM Time: 13:14 Oxygen on at 2 L/min per nasal cannula by Juan Mccracken RN :14 PM HR=63 bpm, EKNY=178/91 mmhg, UvO2=798.0 %, EtCO2=38 mmHg 01:15 PM Time: 13:15 Versed 1 mg Intravenous Given by Juan Mccracken RN :15 PM Time: 13:15 Fentanyl 50 mcg Intravenous Given by Juan Mccracken RN 01:17 PM Time out was performed according to hospital policy. Conscious sedation and anesthesia was achieved (see medication log with in this report above) [facility] :18 PM Recorded ECG: HR=65 Condition=Condition 1 01:18 PM Pressure channel 1 zeroed. :19 PM Time: 13:19 10 ml Lidocaine 2% to right groin Subcutaneous Given by Reilly Liu MD [facility] :19 PM HR=65 bpm, DMGQ=864/87 mmhg, UnL2=528.0 %, Resp=19 B/min, EtCO2=32 mmHg 01: PM Micro-Introducer Kit utilized for sheath placement : PM Access obtained by percutaneous puncture. 6Fr 10cm Terumo [place] sheath placed in right Femoral artery. [id number] mmers :22 PM 0.035 145cm Navilyst 3mmJ wire [id number] [facility] 01[facility]22 PM 5Fr FR 4 catheter inserted over the wire [facility] 01:23 PM wire removed 01:23 PM Recorded Pressure: Ao, HR=64, Condition=Condition 1 (Aorta) Ao 103/67/83 01:23 PM RCA angiography performed in multiple views. 01:24 PM Catheter removed 01:24 PM 5Fr FL 4 catheter inserted over the wire [facility] 01:24 PM HR=71 bpm, PIAH=921/96 mmhg, VzG8=042.0 %, Resp=14 B/min, EtCO2=32 mmHg 01:25 PM LCA angiography performed in multiple views. :26 PM Time: 13:26 10 ml Lidocaine 2% to right groin Subcutaneous Given by Reilly Liu MD kalina 01:26 PM Recorded Pressure: Ao, HR=55, Condition=Condition 1 (Aorta) Ao 118/81/98 01:29 PM Catheter removed 01:29 PM 5Fr Pigtail catheter inserted over the wire [facility] 01:29 PM HR=73 bpm, MCZN=011/93 mmhg, YkO8=542.0 %, Resp=16 B/min, EtCO2=36 mmHg 01:29 PM Catheter crossed the aortic valve and was selectively placed in the left ventricle. Pressures recorded on pullback for left heart catheterization. 01:30 PM Recorded Pressure: LV, HR=82, Condition=Condition 1 (Left Ventricle) LV 138/22/23 01:[address] [facility] 01:30 PM Recorded Pressure: LV, Ao, HR=78, Condition=Condition 1 (Left Ventricle) LV 134/22/24, (Aorta) Ao 135/91/111 01:31 PM Procedure completed at 13:31 [facility]/02[facility] 01:31 PM Did you address MT flow and Dominance? Yes [facility] 01[facility]32 PM Sign out completed: Radiation Dose 118.24 mGy, 16.3 Gy/cm2 Fluoro Time: 2.8 Isovue 370 - 200ml contrast 64 ml given by Reilly Liu MD. Complications: None. The patient was discharged out of the laborer wharf in stable condition. Sedation minutes 17. Cardiac Rehab Consult needed: No. Confirmed administered medications: Yes shanique 01:32 PM Isovue 370 - 200ml,1 Bottle(s) used. tsoumm 01:32 PM Arterial sheath pulled using manual compression and V+ Pad for 15 minutes by Rosie Knutson RT :33 PM Time: 13:33 Nitro Sweetwater 0.4 mg Sublingual Given by Juan Mccracken RN mm 01:33 PM Estimated Blood Loss: minimal mm 01:34 PM Post ECG NSR mm:34 PM Post Blood Pressure 143/93 oumm:34 PM Information taught Cardiac Cath 01:34 PM Education needs Procedure, Plan of Care, and Responsibilities of Patient in Care tsoumm:34 PM Learning barriers :None :34 PM Education Methods Verbal :34 PM Education evaluation Able to repeat information :34 PM Plavix, Effient or Brilinta given No oumm:34 PM Delay to floor No oumm:34 PM no family present at this time mm:34 PM HR=65 bpm, PLIB=892/92 mmhg, KpV0=533.0 %, Resp=16 B/min 01:36 PM Time: 13:13LOC: 4 = Oriented but drowsy :36 PM Time: 13:13 Patient comfortable and pain free: Yes mm 01:42 PM Lesion found in Distal LMCA. Pre Stenosis: 20 Pre MT Flow: mm:42 PM Lesion found in Proximal RCA. Pre Stenosis: 100 Pre MT Flow: 0: No Flow/No perfusion tsoumm 01:42 PM Right Coronary, Right Posterior Descending Arteries with Right Posterolateral and Acute Marginal branches with 100 % stenosis. If graft is supplying this area, 0 % stenosis tsoumm 01:42 PM Left Main Coronary Artery with 20% stenosis tsoumm 01:43 PM Site status No bleeding/hematoma - Rt Groin as reported by Rosie Knutson RT at 13:43 oumm 01:43 PM Opsite applied [email or web address] Complications Complication None Hemodynamics Pressures Site Systolic/A Wave Diastolic/V Wave Mean AO 103 67 83 AO 118 81 98 LV 138 22 23 LV 134 22 24 AO 135 91 111 Post Procedure Information Blood Pressure: 143/93 mmHg Rhythm: NSR Post procedural instructions were given Closure Device Time Device Success/Fail 08/02/2018 1:43:00 PM Manual Compression Site Checks Time Location Status Staff Sheath In? Note 01:43 PM Rt Groin No bleeding/hematoma Rosie Knutson RT Pulses Time Site Pre-Procedure Post-Procedure Note Bilateral DP & PT 1+ Bilateral radial 2+ Updated by Rosie Knutson, RT (R) on 08/02/2018 1:45:10 PM electronically signed on 08/02/2018 1:45:36 PM with status of Final
[2018-08-02] MEDS ORDERED: *HR* LORazepam 2 MG/ML VIAL IVP PRN (15:12)
--- NOTE | 2018-08-02 17:07 | Electrocardiograph Report ---
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
--- NOTE | 2018-08-02 17:18 | Electrocardiograph Report ---
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
--- NOTE | 2018-08-02 18:00 | Nephrology Consult Note ---
Date of Encounter: 08/02/18 Time of Encounter: 12:00 Assessment and Plan (1) Hypokalemia Current Visit: Yes Status: Acute Hypokalemia in the setting of diuretic use (HCTZ), etiology unclear Check urine lytes; urine potassium low at 21 suggesting appropriate response to hypokalemia Continue potassium supplements Hold HCTZ for now, if diuretics needed; aldactone better option (2) Cardiac arrest Current Visit: Yes Status: Acute Per cardiology (3) Prolonged QT interval Current Visit: Yes Status: Acute Per cardiology History of Present Illness - Reason for Consult Consult date: 08/02/18 hypokalemia Requesting physician: Lisa Rowan - History of Present Illness 42 y o male with PMH of CAD, HTN, chronic methadone use and prolonged QT admitted from the ED after he presented for missing his methadone clinic. He became unresponsive while in the ED and required ACLS. Potassium noted at 2.6 on admission with GFR >60. Renal consulted by cardiology to help with potassium repletion. At the time of initial evaluation, potassium noted at 3.5. Pt was deciding to leave AMA hence, no formal consult done then. Pt is noted on HCTZ and lisinopril for BP control. Pt also has a prior history of hypokalemia but the lowest seen in our system was 3.4 in december 2017. Denies N/V/D Past Med Surg Social Fam HX - Past Medical History Medical history: coronary artery disease, hyperlipidemia, hypertension Additional medical history: chronic back pain, hx lumbar fracture Psychiatric history: anxiety, bipolar - Past Surgical History Additional surgical history: L arm, heart cath 01/2018 - Social History Smoking Status: Current every day smoker Smokeless Tobacco Status: No Alcohol use: none Drug use: opiates, marijuana - Family History Father Living Status: Age at : 53 Hx Family Cardiac Disorders: Yes (CAD) Medications and Allergies Albuterol Sulfate [Ventolin Hfa] 2 puff IH Q4H PRN 01/22/18 [History] Fenofibrate Nanocrystallized [Triglide] 160 mg PO DAILY 01/22/18 [History] Fluticasone Propionate [Allergy Relief] 1 spr NS DAILY PRN 01/22/18 [History] Lisinopril [Zestril] 40 mg PO DAILY 01/22/18 [History] Loratadine [Claritin] 10 mg PO DAILY 01/22/18 [History] hydroCHLOROthiazide [Hydrochlorothiazide] 25 mg PO DAILY 01/22/18 [History] DULoxetine [Cymbalta] 20 mg PO DAILY 07/31/18 [History] Fluticasone Propionate [Flovent Hfa] 1 puff IH DAILY 07/31/18 [History] Levothyroxine [Synthroid] 25 mcg PO DAILY 07/31/18 [History] Methadone 92 mg PO DAILY 07/31/18 [History] Allergy/AdvReac Type Severity Reaction Status Date / Time No Known Allergies Allergy Verified 01/22/18 12:50 Review of Systems ROS unobtainable: other (too agitated to provide much infomation) Exam - Vital Signs Vital signs: Initial Vital Signs Temp Pulse Resp BP Pulse Ox 98.9 F 65 20 136/95 98 07/31/18 10:36 07/31/18 10:36 07/31/18 10:36 07/31/18 10:36 07/31/18 10:36 Vital Signs - Last 8 Hours Temp Pulse Resp BP Pulse Ox 08/02/18 16:45 49 133/91 08/02/18 16:18 98.7 F 66 18 133/91 98 08/02/18 16:15 54 128/94 08/02/18 16:00 75 08/02/18 15:45 55 133/91 08/02/18 15:15 79 136/98 08/02/18 14:55 83 137/95 08/02/18 14:40 62 133/97 08/02/18 14:25 66 139/108 08/02/18 14:10 62 141/102 08/02/18 13:47 65 138/104 08/02/18 12:35 63 08/02/18 12:25 98.7 F 68 20 145/96 95 Intake and Output 08/02/18 08/02/18 08/02/18 07:59 15:59 23:59 Output Total 150 / 425 275 / 425 Balance -150 / -425 -275 / -425 Output: Urine 150 / 425 275 / 425 Other: Weight 65.9 kg Patient Weight 08/02/18 23:59 Weight 65.9 kg - General Appearance General appearance: well-developed, well-nourished (NAD) EENT: ATNC, mucous membranes moist Neck: no JVD, supple Respiratory: clear Cardiology: no edema, normal S1, normal S2 Gastrointestinal: no tenderness, no guarding Integumentary: warm and dry Neurologic: no focal deficit Musculoskeletal: no deformities Psychiatric: mood/affect appropriate Results - Lab Results 08/02/18 09:56 08/02/18 07:04 Most recent lab results 08/02/18 07:04 Calcium 8.6 Consult Discharge Plan - Plan Referrals: NONE,PCP [Primary Care Provider] -
[2018-08-03] MEDS: Acetaminophen 325 MG TABLET PO PRN ×2 (00:08→06:28)
[2018-08-03] MEDS: traMADol 50 MG TABLET PO PRN (03:41)
[2018-08-03] MEDS ORDERED: *HR* Heparin 5,000 UNIT/ML VIAL ONE (05:04)
[2018-08-03] MEDS: Levothyroxine 25 MCG TABLET PO SCH (05:09)
[2018-08-03] MEDS: *HR* Heparin 5,000 UNIT/ML VIAL SQ SCH (05:13)
[2018-08-03 06:54] VITALS: BP 145/92
[2018-08-03] MEDS ORDERED: Aspirin Enteric Coated 81 MG Tablet PO SCH (09:00)
--- NOTE | 2018-08-03 09:58 | Discharge Summary ---
- NOTES TO OUTPATIENT PROVIDER Notes to Outpatient Provider: Patient needs to follow-up with nephrology and cardiology within 1 week. Patient left AMA before discharge and nephrology follow up. Medication were sent to his pharmacy. Patient should be on aspirin, plavix, metoprolol and statin. hctz stopped. Lisinopril held. Will need bmp check in few days. Orders not resulted at time of discharge: Pending orders 07/31/18 22:00 EKG [ECG 12 lead ECG] [ECG] Q4H 08/01/18 02:00 EKG [ECG 12 lead ECG] [ECG] Q4H 08/01/18 06:00 EKG [ECG 12 lead ECG] [ECG] Q4H 08/01/18 10:00 EKG [ECG 12 lead ECG] [ECG] Q4H 08/01/18 14:00 EKG [ECG 12 lead ECG] [ECG] Q4H Date of Encounter: 08/03/18 Time of Encounter: 09:58 - Discharge Diagnosis (1) Bradycardia Priority: Primary Status: Chronic (2) DVT prophylaxis Priority: Secondary Status: Acute (3) Prolonged QT interval Priority: Primary Status: Acute (4) Opioid withdrawal Priority: Secondary Status: Acute (5) Cardiac arrest Priority: Primary Status: Acute (6) Hypokalemia Priority: Primary Status: Acute (7) Acute metabolic encephalopathy Priority: Primary Status: Acute Hospital course: Mr. Beasley is a 42 year old male with history of methadone dependence, prolonged qt, non-compliance to medical treatment, CAD, came with h/o passing out. He had Vfib cardiac arrest in er with ROSC. He was found to have hypokalmia which was repleted. Patient was also found to have bradycardia. all qt prolonging medication were held. Utox was positive for marijuana. He had troponin elevated. patient underwent LHC which showed 100% RCA with collateral. No stents wer place. He was started on aspirin, statin, plavix and metoprolol. Nephrology was consulted for hypokalemia which was possible from hctz. Patient left today early as he had appointment at methadone clinic. He was advised against using it by cardiology but he mentions he will be fine with it. He left against medical advise early before could be seen again by nephrology. all the prescription send to pharmacy for aspirin, statin, metoprolol, plavix. hctz was stopped and lisinopril was held. potassium supplement was given. Discharge discussed with: patient, family, nurse, curriculum consultant - Time Spent with Patient Total time spent providing and/or coordinating discharge services: Time spent: Greater than 30 minutes (40) - Discharge Medications Prescriptions: New Aspirin Enteric Coated [Aspirin EC] 81 mg PO DAILY 30 Days #30 tablet. Potassium Chloride [Klor-Con 10] 10 meq PO DAILY 7 Days #7 tablet.er Atorvastatin [Lipitor] 40 mg PO HS 30 Days #30 tablet amLODIPine [Norvasc] 5 mg PO DAILY 30 Days #30 tablet Clopidogrel [Plavix] 75 mg PO DAILY 30 Days #30 tablet Metoprolol Succinate [Toprol Xl] 25 mg PO DAILY #30 tab.er.24h Continued Albuterol Sulfate [Ventolin Hfa] 2 puff IH Q4H PRN PRN Reason: Dyspnea Fluticasone Propionate [Allergy Relief] 1 spr NS DAILY PRN PRN Reason: Nasal Congestion DULoxetine [Cymbalta] 20 mg PO DAILY Levothyroxine [Synthroid] 25 mcg PO DAILY Fluticasone Propionate [Flovent Hfa] 1 puff IH DAILY Discontinued Fenofibrate Nanocrystallized [Triglide] 160 mg PO DAILY hydroCHLOROthiazide [Hydrochlorothiazide] 25 mg PO DAILY Lisinopril [Zestril] 40 mg PO DAILY Loratadine [Claritin] 10 mg PO DAILY Methadone 92 mg PO DAILY Home Medications: Albuterol Sulfate [Ventolin Hfa] 2 puff IH Q4H PRN 01/22/18 [History] Fluticasone Propionate [Allergy Relief] 1 spr NS DAILY PRN 01/22/18 [History] DULoxetine [Cymbalta] 20 mg PO DAILY 07/31/18 [History] Fluticasone Propionate [Flovent Hfa] 1 puff IH DAILY 07/31/18 [History] Levothyroxine [Synthroid] 25 mcg PO DAILY 07/31/18 [History] Aspirin Enteric Coated [Aspirin EC] 81 mg PO DAILY 30 Days #30 tablet. 08/03/18 [Rx] Atorvastatin [Lipitor] 40 mg PO HS 30 Days #30 tablet 08/03/18 [Rx] Clopidogrel [Plavix] 75 mg PO DAILY 30 Days #30 tablet 08/03/18 [Rx] Metoprolol Succinate [Toprol Xl] 25 mg PO DAILY #30 tab.er.24h 08/03/18 [Rx] Potassium Chloride [Klor-Con 10] 10 meq PO DAILY 7 Days #7 tablet.er 08/03/18 [Rx] amLODIPine [Norvasc] 5 mg PO DAILY 30 Days #30 tablet 08/03/18 [Rx] Allergies/Adverse Reactions: Allergy/AdvReac Type Severity Reaction Status Date / Time No Known Allergies Allergy Verified 01/22/18 12:50 Date of admission: 07/31/18 15:36 Primary care physician: PCP NONE Consults: 07/31/18 17:25 Consult to Cardiology [CONS] Stat Comment: Consulting Provider: Cardiology Aysha Reason for Consult: cardiac arrest , Vfib arrest, prolonged QT Call Completed: Yes 08/01/18 08:55 Consult to Nephrology [CONS] Routine Consulting Provider: Kidney Aysha/KATHLEEN/MAR/KRYSTYNA Reason for Consult: hypokalemia Call Completed: Yes 08/03/18 08:37 Consult to Cardiac Rehabilitation-Phase1 [CONS] Routine Comment: Reason for Consult: CAD Call Completed: No Discharging clinician: Jovon Garcia - Constitutional Vitals: Temp Pulse Resp BP Pulse Ox 98.5 F 69 16 145/92 99 08/03/18 06:50 08/03/18 06:50 08/03/18 06:50 08/03/18 06:50 08/03/18 06:50 Exam: General: In no acute distress. Respiratory exam: CTAB. no accessory muscle use, rales, rhonchi, wheezes Cardiovascular exam: RRR, +S1, +S2. no murmur, gallop, rubs. GI/Abdominal exam: Non-tender, Non-distended, normal bowel sounds, soft, no peritoneal signs. Extremities exam: no pedal edema, no calf tenderness Neurological exam: CN II-XII intact, AO X3, no focal deficits. Skin exam: No skin rash - Patient Status Disposition: Left Against Medical Advice Condition: Fair - Discharge Instructions Follow Up With: NONE,PCP [Primary Care Provider] - - Diet and Activity Activity: increase activity as tolerated
--- NOTE | 2018-08-03 14:56 | Electrocardiograph Report ---
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
== END 2018-08-03 08:48 | disposition left against medical advice (07) | DRG 425 ==
LOC: EMEROOARM 10:31 → SUATTDRO 15:36 → ICNU 15:36 → 2NNU 08-02 12:23 → 3ANU 08-03 06:01
PROVIDERS: ADMIT Internal Medicine; ATTEND Internal Medicine